=== PATIENT | male | born 1945 | race Caucasian/White ===

== ENCOUNTER → 2020-04-06 09:15 | Outpatient (BNVA) | payer MEDICARE, MEDICAID, SELFPAY | PROVIDERS: PCP Student in an Organized Health Care Education/Training Program; Referring Provider Student in an Organized Health Care Education/Training Program; Visit Provider Psychiatry & Neurology Neurology | DX: G47.31 Primary central sleep apnea (principal) | CPT/HCPCS: 99214 ==

== ENCOUNTER 2020-04-12 09:25 | Emergency (ER) | payer OTHER, MEDICARE, MEDICAID, SELFPAY ==
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
[2020-04-12 09:37] VITALS: BP 161/74; PULSE 81; RESP 14; TEMP 36.8; O2SAT 98; BMI 35.4
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
--- NOTE | 2020-04-12 09:55 | PC.NURSE ---
PT REMOVED C-COLLAR ON ARRIVAL TO ED ROOM/BED. AWARE.
--- NOTE | 2020-04-12 10:30 | PC.NURSE ---
PT AMB (I) GAIT STEADY TO BR.
--- NOTE | 2020-04-12 10:52 | PC.NURSE ---
PT IS NOT IN THE BATHROOM NOR IS HE AT BED #13. AWARE OF PT'S POSSIBLE ELOPEMENT.
--- NOTE | 2020-04-12 11:04 | PC.NURSE ---
PT HAS ELOPED.
== END 2020-04-12 11:07 | disposition left against medical advice (07) ==
PROVIDERS: Emergency Provider Emergency Medicine; PCP Student in an Organized Health Care Education/Training Program
DX: R07.89 Other chest pain (principal); S60.221A Contusion of right hand, initial encounter; V47.5XXA Car driver injured in collision with fixed or stationary object in traffic accident, initial encounter; R93.89 Abnormal findings on diagnostic imaging of other specified body structures; E04.1 Nontoxic single thyroid nodule; I11.0 Hypertensive heart disease with heart failure; I50.9 Heart failure, unspecified; E11.9 Type 2 diabetes mellitus without complications; Y93.89 Activity, other specified; Y92.414 Local residential or business street as the place of occurrence of the external cause; Y99.9 Unspecified external cause status; Z79.82 Long term (current) use of aspirin; Z79.84 Long term (current) use of oral hypoglycemic drugs; Z79.899 Other long term (current) drug therapy
CPT/HCPCS: 71250; 72125; 73130; 99284

== ENCOUNTER → 2020-07-06 08:55 | Outpatient (BNVA) | payer MEDICARE, MEDICAID, SELFPAY | PROVIDERS: PCP Student in an Organized Health Care Education/Training Program; Visit Provider Nurse Practitioner Gerontology | DX: E11.65 Type 2 diabetes mellitus with hyperglycemia (principal); E11.21 Type 2 diabetes mellitus with diabetic nephropathy; E11.42 Type 2 diabetes mellitus with diabetic polyneuropathy; I10 Essential (primary) hypertension; E78.5 Hyperlipidemia, unspecified; Z79.4 Long term (current) use of insulin | CPT/HCPCS: 82947; 99212 ==

== ENCOUNTER → 2020-08-25 11:20 | Outpatient (BNVA) | payer MEDICARE, MEDICAID, SELFPAY | PROVIDERS: PCP Student in an Organized Health Care Education/Training Program; Visit Provider Nurse Practitioner Gerontology ==

== ENCOUNTER → 2020-09-14 12:47 | Outpatient (BNVA) | payer MEDICARE, MEDICAID, SELFPAY | PROVIDERS: PCP Student in an Organized Health Care Education/Training Program; Visit Provider Nurse Practitioner Gerontology | DX: E11.65 Type 2 diabetes mellitus with hyperglycemia (principal); E11.21 Type 2 diabetes mellitus with diabetic nephropathy; E11.42 Type 2 diabetes mellitus with diabetic polyneuropathy; E78.5 Hyperlipidemia, unspecified; I10 Essential (primary) hypertension; Z79.4 Long term (current) use of insulin; Z71.3 Dietary counseling and surveillance | CPT/HCPCS: 82947; 99212 ==

== ENCOUNTER → 2020-10-27 13:58 | Outpatient (BNVA) | payer MEDICARE, MEDICAID, SELFPAY | PROVIDERS: PCP Student in an Organized Health Care Education/Training Program; Visit Provider Nurse Practitioner Gerontology | DX: E11.65 Type 2 diabetes mellitus with hyperglycemia (principal); E11.21 Type 2 diabetes mellitus with diabetic nephropathy; E11.42 Type 2 diabetes mellitus with diabetic polyneuropathy; Z79.4 Long term (current) use of insulin; I10 Essential (primary) hypertension; E78.5 Hyperlipidemia, unspecified | CPT/HCPCS: 82947; 99212 ==

== ENCOUNTER → 2020-12-06 12:49 | Outpatient (BNVA) | payer MEDICARE, MEDICAID, SELFPAY | PROVIDERS: PCP Student in an Organized Health Care Education/Training Program; Visit Provider Nurse Practitioner Gerontology | DX: E11.65 Type 2 diabetes mellitus with hyperglycemia (principal); E11.21 Type 2 diabetes mellitus with diabetic nephropathy; E11.42 Type 2 diabetes mellitus with diabetic polyneuropathy; I10 Essential (primary) hypertension; E78.5 Hyperlipidemia, unspecified; E66.09 Other obesity due to excess calories; Z79.4 Long term (current) use of insulin; Z68.34 Body mass index [BMI] 34.0-34.9, adult | CPT/HCPCS: 82947; 99212 ==

== ENCOUNTER 2021-01-11 15:22 | Outpatient (REF) | payer MEDICARE, MEDICAID, SELFPAY ==
[2021-01-11 16:15] LABS: Alanine Aminotransferase 21 U/L (0-40); Albumin Level 3.9 g/dL (3.5-5.0); Alkaline Phosphatase 85 U/L (39-117); Anion Gap 13 (12-20); Aspartate Amino Transferase 19 U/L (5-37); Bilirubin Total 0.4 mg/dL (0.0-1.0); Blood Urea Nitrogen 24 mg/dL (9-16); Calcium 9.5 mg/dL (8.4-10.2); Carbon Dioxide 28 mmol/L (22-29); Chloride 104 mmol/L (96-108); Cholesterol 191 mg/dL; Estimated Glomerular Filt Rate 52; Glucose Fasting 255 mg/dL (60-99); HDL Cholesterol 34 mg/dL; LDL Cholesterol Calculated 104 mg/dl; Potassium 4.4 mmol/L (3.3-5.1); Sodium 141 mmol/L (135-145); Total Protein 7.5 g/dL (6.5-8.0); Triglycerides 269 mg/dL
[2021-01-11 16:42] LABS: Vitamin B12 625 pg/mL (200-900)
[2021-01-11 17:04] LABS: Creatinine Urine 17.57 mg/dL; Microalbumin Urine < 5.0 mg/L
== END 2021-01-11 15:23 | disposition home or self-care (01) ==
LOC: HO.LAB 15:22
PROVIDERS: PCP Student in an Organized Health Care Education/Training Program; Visit Provider Nurse Practitioner Gerontology
DX: E11.65 Type 2 diabetes mellitus with hyperglycemia (principal); Z79.4 Long term (current) use of insulin
CPT/HCPCS: 36415; 80053; 80061; 82043; 82607

== ENCOUNTER → 2021-01-12 11:33 | Outpatient (BNVA) | payer MEDICARE, MEDICAID, SELFPAY | PROVIDERS: PCP Student in an Organized Health Care Education/Training Program; Visit Provider Nurse Practitioner Gerontology | DX: E11.65 Type 2 diabetes mellitus with hyperglycemia (principal); E11.21 Type 2 diabetes mellitus with diabetic nephropathy; E11.42 Type 2 diabetes mellitus with diabetic polyneuropathy; E78.5 Hyperlipidemia, unspecified; E66.09 Other obesity due to excess calories; I10 Essential (primary) hypertension; Z79.4 Long term (current) use of insulin; Z68.34 Body mass index [BMI] 34.0-34.9, adult | CPT/HCPCS: 82947; Q3014 ==

== ENCOUNTER 2021-01-12 14:28 | Outpatient (REF) | payer MEDICARE, MEDICAID, SELFPAY ==
--- NOTE | 2021-01-13 13:17 | MHC.AU.ANO ---
Adult Audiological Evaluation Date of Visit: 01/12/21 Petrophysicist Used: Declined by Patient Reason for Appointment: Audiologic evaluation due to question of hearing difficulties. Pb's room mate reports he frequently asks for speech to be repeated. 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 History: History: No Medical History: Medical History: Diabetes,Heart Problems, High Blood Pressure, Tobacco Use Medication List: Atorvastatin Calcium, Jardiance, Isosorbide Mononitrate, Lasix, Docusate Sodium, Albuterol Sulfate, Nitrostat, Senna Lax, Ventolin HFA, Aspirin, Loratadine, Metoprolol, Amlodipine, Metformin, Omeprazole, Lyrica, Flovent, Eliquis, Clotrimazole, Zoloft, Ferrous Sulfate Otoscopy: Right Ear: Unremarkable Left Ear: Unremarkable Tympanometry: Tympanometry performed due to: To assess integrity of the middle ear system Right Ear: Could Not Obtain Seal Left Ear: Could Not Obtain Seal Otoacoustic Emissions Not performed at today's visit. Equipment not available Hearing Evaluation: Transducer(s) Used: Insert Earphones Bone Conduction Method: Conventional Audiometry Stimuli Used: Pure Tones Right Ear: Description of Hearing: Normal to borderline normal hearing thresholds 250-2000 Hz, dropping to a moderate sensorineural hearing loss at 3000 Hz, rising to borderline normal at 8000 Hz Left Ear: Description of Hearing: Normal to borderline normal hearing thresholds 250-2000 Hz, dropping to a moderate sensorineural hearing loss at 3000 Hz, rising to mild loss at 5524-7359 Hz Speech Recognition Threshold (SRT): Method Used: Monitored Live Voice Stimuli Used: Spondee Words Right Ear: 20 dB HL Left Ear: 20 dB HL Word Discrimination: Method: Monitored Live Voice Word Lists Used: Lista Bisil?bica (Swedish) Right Ear: 100% at 60 dB HL Left Ear: 100% at 60 dB HL Interpretation of Results: The mild to moderate high frequency sensorineural hearing loss may cause Pb to miss important soft consonant sounds which help him differentiate similar sounding words. Also, if Pb is not paying attention and a person starts to talk, he will likely miss a portion of the speech which causes him to ask for repetition. Recommendations: Patient does not feel they are ready for amplification at this time. Discussed communication strategies to use to improve speech understanding as needed. Audiological re-evaluation in one year. Will send a reminder card. Diagnosis: Primary Diagnosis: H90.3 Bilateral Sensorineural Hearing Loss Services Performed: Comprehensive Audiological Evaluation (CPT 99519) Tympanometry (CPT 44360) Signature: Provider: Inocencio Snider, CCC-A
== END 2021-01-12 14:29 | disposition home or self-care (01) ==
LOC: HO.SH 14:28
PROVIDERS: Visit Provider General Practice
DX: H90.3 Sensorineural hearing loss, bilateral (principal)
CPT/HCPCS: 92557; 92567

== ENCOUNTER 2021-06-23 20:41 | Emergency (ER) | payer MEDICARE, MEDICAID, SELFPAY ==
--- NOTE | ~2021-06-23 | CT_ITS ---
EXAMINATION: CT HEAD WITHOUT CONTRAST CLINICAL INFORMATION: Confusion COMPARISON: 11/29/2019 TECHNIQUE: Contiguous axial imaging was performed from the skull base to vertex without intravenous contrast. This CT examination was performed using dose optimization techniques as appropriate, variously including the following: * Automated exposure control * Adjustment of mA and/or kV according to patient size (this includes techniques or standardized protocols for targeted exams where dose is matched to indication/reason for exam; i.e. extremities or head) Use of iterative reconstruction technique DLP: 719 mGy-cm. FINDINGS: There is no evidence of acute intracranial hemorrhage or territorial infarction. No abnormal mass effect or midline shift is seen. Meza to white matter differentiation is well preserved. No extra-axial fluid collections are identified. No hydrocephalus. Proportional prominence of the ventricles and sulcal spaces is consistent with mild volume loss. Patchy periventricular and deep white matter hypoattenuation is consistent with mild small vessel ischemic changes. The osseous structures and soft tissues are normal. The mastoid air cells and visualized portions of the paranasal sinuses are well aerated. CT/CT head/brain wo con IMPRESSION: No acute intracranial pathology. Mild volume loss with small vessel ischemic change.
--- NOTE | ~2021-06-23 | XR_ITS ---
EXAMINATION: XR CHEST CLINICAL INFORMATION: Cough COMPARISON: 09/13/2019 TECHNIQUE: Frontal view of the chest was obtained. FINDINGS: Median sternotomy wires appear intact. Cardiac leads overlie the chest. The lungs are well expanded. There is no focal consolidation, edema, or effusion. No pneumothorax. The cardiomediastinal silhouette is within normal limits. No acute osseous abnormality. XR/XR chest 1V IMPRESSION: No acute pulmonary finding.
--- NOTE | ~2021-06-23 | XR_ITS ---
EXAMINATION: XR KNEE, RIGHT CLINICAL INFORMATION: Fall with knee pain COMPARISON: Right knee 05/24/2016 TECHNIQUE: Four views of the right knee. FINDINGS: Since 2016, there has been some progression of degenerative changes with narrowing of the medial compartment. The lateral compartment is well maintained as is the patellofemoral compartment. No joint effusion is seen. No fracture is present. XR/XR knee RT 4V IMPRESSION: Mild progressive degenerative changes with narrowing of the medial compartment.
[2021-06-23 20:46] VITALS: BP 130/67; PULSE 84; RESP 16; TEMP 36.8; O2SAT 98; BMI 32.5
[2021-06-23 20:51] LABS: Glucose, Whole Blood 276 mg/dL (60-115)
[2021-06-23 20:57] VITALS: PULSE 82; RESP 18; O2SAT 98
--- NOTE | 2021-06-23 21:10 | ECG_ITS ---
Test Reason : WEAKNESS Blood Pressure : / mmHG Vent. Rate : 076 BPM Atrial Rate : 076 BPM P-R Int : 170 ms QRS Dur : 092 ms QT Int : 430 ms P-R-T Axes : 013 -05 048 degrees QTc Int : 483 ms Sinus rhythm with frequent Premature ventricular complexes Prolonged QT Abnormal ECG When compared to the previous EKG of 13 sep 2019, PVCs present. Referred By: Aster Butts Electronically Signed By:JOSE BENNETT
--- NOTE | 2021-06-23 21:41 | ED.GENADULT ---
HPI - General Adult General Chief complaint: Weakness Stated complaint: AMS Time Seen by Provider: 06/23/21 21:09 Source: patient Mode of arrival: EMS History of Present Illness HPI narrative: 76-year-old male with history hypertension diabetes who is brought in via EMS from home. As per EMS family reports a decline in mental status/confusion over the last 2 months but has noted that is been more significant over the past 2 days. On questioning the patient he is alert and able to identify his location, is aware that it is almost [place] but does not recall the president. He denies any shortness of breath or chest pain/palpitations, denies any abdominal pain/nausea/vomiting/diarrhea and states that he ?fell recently? and points to a small area on his mid chest as well as his right knee. Related Data Home Medications Medication Instructions Recorded Confirmed amlodipine 10 mg tablet 10 mg PO DAILY 04/03/20 01/12/21 aspirin 81 mg tablet,delayed 81 mg PO BEDTIME 04/03/20 01/12/21 release ferrous sulfate 325 mg (65 mg 325 mg PO Q OTHER DAY 04/03/20 01/12/21 iron) tablet fluticasone propionate 250 1 inh INHALATION BID 04/03/20 01/12/21 mcg/actuation blister powder for inhalation furosemide 40 mg tablet 40 mg PO BID 04/03/20 01/12/21 isosorbide mononitrate 30 mg 30 mg PO BEDTIME 04/03/20 01/12/21 tablet,extended release 24 hr loratadine 10 mg tablet 10 mg PO DAILY 04/03/20 01/12/21 metoprolol tartrate 25 mg tablet 25 mg PO 04/03/20 01/12/21 nitroglycerin 0.4 mg sublingual 0.4 mg SUBLINGUAL 04/03/20 01/12/21 tablet omeprazole 20 mg capsule,delayed 20 mg PO QAM 04/03/20 01/12/21 release sertraline 25 mg tablet 25 mg PO QAM 04/03/20 01/12/21 albuterol sulfate mg INHALATION Q4-6H 06/08/20 01/12/21 albuterol sulfate 90 mcg/actuation 2 puff PO QID 06/08/20 01/12/21 aerosol inhaler blood sugar diagnostic #10 ea 12/08/20 07/14/21 lancets 33 gauge #100 ea 06/08/20 01/12/21 metformin 1,000 mg tablet 1,000 mg PO BID tab 06/08/20 01/12/21 pen needle, diabetic 31 gauge x #50 ea 06/08/20 01/12/21 3/16 pregabalin 75 mg capsule 75 mg PO BID cap 06/08/20 01/12/21 apixaban 5 mg tablet 5 mg PO BID 07/06/20 01/12/21 Previous Rx's Medication Instructions Recorded cyclobenzaprine 10 mg tablet 10 mg PO TID PRN #14 tab 04/12/20 lidocaine 5 % topical patch 1 patch TOPICAL DAILY PRN #15 ea 04/12/20 (Lidoderm) insulin degludec 200 unit/mL (3 70 unit (0.35 mL) SUBCUT DAILY 30 01/12/21 mL) subcutaneous pen Days #18 ml insulin lispro-aabc 100 unit/mL 16 - 20 unit (0.16 - 0.2 mL) 01/12/21 subcutaneous pen (Lyumjev KwikPen SUBCUT TID 30 Days #30 ml U-100 Insulin) rosuvastatin 40 mg tablet 40 mg PO DAILY #30 tab 01/12/21 empagliflozin 25 mg tablet 25 mg PO QAM #30 tab 05/10/21 (Jardiance) Allergies Allergy/AdvReac Type Severity Reaction Status Date / Time No Known Allergies Allergy Mild NOT Verified 01/12/21 12:14 APPLICABLE Review of Systems Review of Systems: Pertinent positives and negatives as stated in HPI 10 point review of systems is otherwise negative. [facility] Past Medical History Source: nursing notes reviewed Medical History Anemia Aortic stenosis CHF (congestive heart failure) Depression Diabetes Essential hypertension Gastritis HTN (hypertension) Hyperlipidemia Hyperlipidemia LDL goal <70 Obesity due to excess calories Substance abuse Type 2 diabetes mellitus with diabetic polyneuropathy Type 2 diabetes mellitus with hyperglycemia, with long-term current use of insulin Type 2 diabetes with nephropathy Surgical History Hx of aortic valve replacement Hx of cholecystectomy Hx of hernia repair Family History Family History Father No problems noted. Mother CVA (cerebral vascular accident) Diabetes Cancer of stomach Family/Other Diabetes Social History Social History Household Members: Spouse and Other Household Members Other:: Son Housing: Apartment Advance Directives: No Advance Directives Information Provided: Yes Physical Exam Vital Signs: Vital Signs: Last Vital Signs Temp 98.2 F 06/23/21 20:46 Pulse 72 06/24/21 01:42 Resp 16 06/24/21 01:42 BP 133/78 06/24/21 01:42 Pulse Ox 98 06/24/21 01:42 BMI result Body Mass Index 32.5 VITAL SIGNS: Reviewed. GENERAL: Well developed, well nourished, in no acute distress. HEAD: Normocephalic/atraumatic EYES: PERRLA, EOMI OROPHARYNX: no oral lesions noted, posterior pharynx clear, moist mucosa NECK: Supple, no adenopathy LUNGS: Normal breath sounds. No adventitious sounds or accessory muscle use. SpO2<98> CARDIOVASCULAR: Regular rate and rhythm without noted murmurs, no JVD or lower extremity edema. ABDOMEN: Soft, non-tender, non-distended with bowel sounds. MUSCULOSKELETAL: No tenderness, deformities, or effusions noted on gross inspection. EXTREMITIES: No cyanosis, clubbing or edema, bruising around the right knee without obvious effusion or surrounding erythema/induration SKIN: Inspection of the skin reveals no rashes NEUROLOGIC: Alert and oriented x 2. Strength and sensation to light touch were grossly intact x 4. Course Course Course Narrative: 76-year-old male with history and clinical presentation inconsistent with infection, anemia but will obtain CT head as well as urinalysis and if no underlying medical findings will discharge home. On review of all investigations although there is a noted increase in BNP patient was provided with Lasix and otherwise there are no acute findings that would prompt admission. This case was discussed with the inpatient hospitalist and the decision to send patient home was agreed on. All results were discussed with patient at bedside with diplomatic interpreter/translator to include his discharged to home. Medical Decision Making Lab Data Result diagrams: 06/23/21 21:34 06/23/21 21:34 Labs: Lab Results 06/23/21 06/23/21 06/23/21 Range/Units 20:48 21:34 21:34 WBC (4.8-10.8) X10*3/uL RBC (4.60-5.80) X10*6/uL Hgb (14.0-18.0) g/dl Hct (42.0-52.0) % MCV (80.0-98.0) fL MCH (27.0-33.0) pg MCHC (31.0-36.0) g/dl RDW (11.0-16.0) % Plt Count (160-400) X10*3/uL MPV (9.4-12.4) fL Immature Gran % (Auto) (0.0-0.4) % Neut % (Auto) (45-73) % Lymph % (Auto) (20-40) % [place] % (Auto) (2-11) % Eos % (Auto) (0-4) % Baso % (Auto) (0-2) % Lymph # (Auto) (1.2-4.9) X10*3/uL [place] # (Auto) (0.1-1.2) X10*3/uL Eos # (Auto) (0.0-0.4) X10*3/uL Baso # (Auto) (0.0-0.2) X10*3/uL Abs Immat Gran (auto) (0.00-0.03) X10*3/uL Absolute Neuts (auto) (2.0-8.3) x10*3/uL Absolute Nucleated RBC (0.0-0.012) X10*3/uL Nucleated RBC % (auto) (0.0-0.2) /100WBC Sodium 138 (135-145) mmol/L Potassium 3.8 (3.3-5.1) mmol/L Chloride 104 (96-108) mmol/L Carbon Dioxide 24 (22-29) mmol/L Anion Gap 14 (12-20) BUN 26 H (9-16) mg/dL Creatinine 1.44 H (0.5-1.4) mg/dL Estim Creat Clear Calc 44.5 Estimated GFR 48 POC Glucose 276 H (60-115) mg/dL Random Glucose 279 H (60-115) mg/dL Calcium 9.5 (8.4-10.2) mg/dL Total Bilirubin 0.4 (0.0-1.0) mg/dL AST 27 D (5-37) U/L ALT 39 (0-40) U/L Alkaline Phosphatase 81 (39-117) U/L Troponin I High Sens (<3.5-35.0) ng/L B-Natriuretic Peptide (<100) pg/mL Total Protein 7.7 (6.5-8.0) g/dL Albumin 4.0 (3.5-5.0) g/dL Urine Color Urine Appearance Urine pH (5.0-8.0) Ur Specific [place] (1.005-1.025) Urine Protein (NEG-TRACE) MG/DL Urine Glucose (UA) (NEG) MG/DL Urine Ketones (NEG) MG/DL Urine Blood (NEG) Urine Nitrite (NEG) Ur Leukocyte Esterase (NEG) Urine RBC (0) /HPF Urine WBC (0-4) /HPF Ur Squamous Epith Cells /LPF Urine Bacteria /LPF Acetone, Qual Negative (Negative) COVID-19 ([facility]ETH) Negative (Negative) COVID-19 Clin Com See Note 06/23/21 06/23/21 06/23/21 Range/Units 21:34 21:34 23:39 WBC 7.3 (4.8-10.8) X10*3/uL RBC 4.94 (4.60-5.80) X10*6/uL Hgb 14.1 (14.0-18.0) g/dl Hct 43.4 (42.0-52.0) % MCV 87.9 (80.0-98.0) fL MCH 28.5 (27.0-33.0) pg MCHC 32.5 (31.0-36.0) g/dl RDW 14.0 (11.0-16.0) % Plt Count 173 (160-400) X10*3/uL MPV 10.6 (9.4-12.4) fL Immature Gran % (Auto) 0.1 (0.0-0.4) % Neut % (Auto) 70.6 (45-73) % Lymph % (Auto) 21.5 (20-40) % [place] % (Auto) 7.3 (2-11) % Eos % (Auto) 0.1 (0-4) % Baso % (Auto) 0.4 (0-2) % Lymph # (Auto) 1.6 (1.2-4.9) X10*3/uL [place] # (Auto) 0.5 (0.1-1.2) X10*3/uL Eos # (Auto) 0.0 (0.0-0.4) X10*3/uL Baso # (Auto) 0.0 (0.0-0.2) X10*3/uL Abs Immat Gran (auto) 0.01 (0.00-0.03) X10*3/uL Absolute Neuts (auto) 5.1 (2.0-8.3) x10*3/uL Absolute Nucleated RBC 0.000 (0.0-0.012) X10*3/uL Nucleated RBC % (auto) 0.0 (0.0-0.2) /100WBC Sodium (135-145) mmol/L Potassium (3.3-5.1) mmol/L Chloride (96-108) mmol/L Carbon Dioxide (22-29) mmol/L Anion Gap (12-20) BUN (9-16) mg/dL Creatinine (0.5-1.4) mg/dL Estim Creat Clear Calc Estimated GFR POC Glucose (60-115) mg/dL Random Glucose (60-115) mg/dL Calcium (8.4-10.2) mg/dL Total Bilirubin (0.0-1.0) mg/dL AST (5-37) U/L ALT (0-40) U/L Alkaline Phosphatase (39-117) U/L Troponin I High Sens 9.6 (<3.5-35.0) ng/L B-Natriuretic Peptide 351 H (<100) pg/mL Total Protein (6.5-8.0) g/dL Albumin (3.5-5.0) g/dL Urine Color YELLOW Urine Appearance CLEAR Urine pH 7.5 (5.0-8.0) Ur Specific [place] 1.010 (1.005-1.025) Urine Protein NEG (NEG-TRACE) MG/DL Urine Glucose (UA) >=1000 H (NEG) MG/DL Urine Ketones NEG (NEG) MG/DL Urine Blood NEG (NEG) Urine Nitrite NEG (NEG) Ur Leukocyte Esterase NEG (NEG) Urine RBC 1-4 (0) /HPF Urine WBC 1-4 (0-4) /HPF Ur Squamous Epith Cells 1+ /LPF Urine Bacteria 1+ /LPF Acetone, Qual (Negative) COVID-19 (ELIZABETH) (Negative) COVID-19 Clin Com ECG Data Attestation: I personally reviewed and interpreted this ECG as follows: Prior ECG tracings: not available for review Interpretation: Sinus rhythm, HR -76, no STEMI, FL/QRS within normal limits. Discharge Plan Discharge Clinical Impression: CHF (congestive heart failure) Patient Disposition: Home, Self-Care Instructions: Heart Failure (ED), Heart Healthy Diet (ED) Additional Instructions: 1. Reanude todos los medicamentos caseros seg?n lo prescrito. 2. Recomiende hacer un seguimiento con porter proveedor de atenci?n primaria el lunes para bri reevaluaci?n. Regrese a la cristiano de emergencias si los s?ntomas empeoran. Prescriptions: No Action Jardiance 25 mg tablet 25 mg PO QAM Qty: 30 RF: 4 cyclobenzaprine 10 mg tablet 10 mg PO TID PRN (Reason: muscle spasm) Qty: 14 RF: 0 lidocaine [Lidoderm] 5 % adhesive patch,medicated 1 patch topical DAILY PRN (Reason: pain) Qty: 15 RF: 0 (DME) FreeStyle Lite Strips Strip See Rx Instructions ea .ROUTE QID Qty: 10 RF: 0 (DME) pen needle, diabetic 31 gauge x 3/16 needle See Rx Instructions ea .ROUTE QID Qty: 50 RF: 0 (DME) lancets 33 gauge misc See Rx Instructions ea .ROUTE QID Qty: 100 RF: 0 albuterol sulfate 90 mcg/actuation HFA aerosol inhaler 2 puff PO QID RF: 0 albuterol sulfate 2.5 mg /3 mL (0.083 %) solution for nebulization inhalation Q4-6H RF: 0 metoprolol tartrate 25 mg tablet 25 mg PO RF: 0 Flovent Diskus 250 mcg/actuation blister with device 1 inh inhalation BID RF: 0 omeprazole 20 mg capsule,delayed release(DR/EC) 20 mg PO QAM RF: 0 sertraline 25 mg tablet 25 mg PO QAM RF: 0 ferrous sulfate 325 mg (65 mg iron) tablet 325 mg PO Q OTHER DAY RF: 0 amlodipine 10 mg tablet 10 mg PO DAILY RF: 0 aspirin 81 mg tablet,delayed release (DR/EC) 81 mg PO BEDTIME RF: 0 isosorbide mononitrate 30 mg tablet extended release 24 hr 30 mg PO BEDTIME RF: 0 furosemide 40 mg tablet 40 mg PO BID RF: 0 loratadine 10 mg tablet 10 mg PO DAILY RF: 0 nitroglycerin 0.4 mg tablet, sublingual 0.4 mg sublingual RF: 0 metformin 1,000 mg tablet 1,000 mg PO BID RF: 0 pregabalin 75 mg capsule 75 mg PO BID RF: 0 Eliquis 5 mg tablet 5 mg PO BID RF: 0 Lyumjev KwikPen U-100 Insulin 100 unit/mL insulin pen 16 - 20 unit subcut TID 30 Days Qty: 30 RF: 2 insulin degludec 200 unit/mL (3 mL) insulin pen 70 unit subcut DAILY 30 Days Qty: 18 RF: 2 rosuvastatin 40 mg tablet 40 mg PO DAILY Qty: 30 RF: 6 Referrals: Agnes Prieto MD [Primary Care Provider] - 2 days
[2021-06-23 21:46] LABS: MANUAL DIFF FLAG NO
[2021-06-23 21:47] LABS: Basophils Percent Auto 0.4 % (0-2); Eosinophils Percent Auto 0.1 % (0-4); Hematocrit 43.4 % (42.0-52.0); Hemoglobin 14.1 g/dl (14.0-18.0); Imm Gran Abs Auto 0.01 X10*3/uL (0.00-0.03); Imm Gran Pct Auto 0.1 % (0.0-0.4); Lymphocytes Absolute Auto 1.6 X10*3/uL (1.2-4.9); Lymphocytes Percent Auto 21.5 % (20-40); Mean Corpuscular HGB Conc 32.5 g/dl (31.0-36.0); Mean Corpuscular Hemoglobin 28.5 pg (27.0-33.0); Mean Corpuscular Volume 87.9 fL (80.0-98.0); Mean Platelet Volume 10.6 fL (9.4-12.4); Monocytes Absolute Auto 0.5 X10*3/uL (0.1-1.2); Monocytes Percent Auto 7.3 % (2-11); Neutrophils Absolute Auto 5.1 x10*3/uL (2.0-8.3); Neutrophils Percent Auto 70.6 % (45-73); Platelet Count 173 X10*3/uL (160-400); Red Blood Count 4.94 X10*6/uL (4.60-5.80); White Blood Count 7.3 X10*3/uL (4.8-10.8)
[2021-06-23 22:01] LABS: COVID-19 Test Negative (Negative); IDNOW Serial# 9DD0AD1C
[2021-06-23 22:04] LABS: Alanine Aminotransferase 39 U/L (0-40); Alkaline Phosphatase 81 U/L (39-117); Anion Gap 14 (12-20); Aspartate Amino Transferase 27 U/L (5-37); Bilirubin Total 0.4 mg/dL (0.0-1.0); Blood Urea Nitrogen 26 mg/dL (9-16); Calcium 9.5 mg/dL (8.4-10.2); Carbon Dioxide 24 mmol/L (22-29); Chloride 104 mmol/L (96-108); Creatinine Clr Calc Pharmacy 44.5; Estimated Glomerular Filt Rate 48; Glucose Random 279 mg/dL (60-115); Potassium 3.8 mmol/L (3.3-5.1); Sodium 138 mmol/L (135-145); Total Protein 7.7 g/dL (6.5-8.0)
[2021-06-23 22:48] LABS: Acetone, serum QL Negative (Negative)
[2021-06-23 23:32] VITALS: BP 119/64; PULSE 69; RESP 16; O2SAT 98
[2021-06-23 23:46] LABS: Appearance Urine CLEAR; Color Urine YELLOW; Glucose Urine UA >=1000 MG/DL (NEG); Leukocyte Esterase Urine NEG (NEG); Nitrite Urine NEG (NEG); PH 7.5 (5.0-8.0); Urine Blood NEG (NEG); Urine Ketones NEG (NEG); Urine Protein NEG (NEG-TRACE)
[2021-06-23 23:56] LABS: Bacteria Urine 1+ /LPF; Squamous Epithelial Cell Urine 1+ /LPF
[2021-06-24 00:05] LABS: B Type Natriuretic Peptide 351 pg/mL (<100)
[2021-06-24 01:16] LABS: Troponin-I High Sensitivity 9.6 ng/L (<3.5-35.0)
[2021-06-24 01:42] VITALS: BP 133/78; PULSE 72; RESP 16; O2SAT 98
[2021-06-24] MEDS: Furosemide 100 MG/10 ML VIAL 60 MG IVPUSH (01:53)
[2021-06-24] MEDS: Potassium Chloride ER 20 MEQ TAB.ER.PRT 40 MEQ PO (02:56)
[2021-06-24 05:56] VITALS: BP 136/79; PULSE 67; RESP 16; TEMP 36.5; O2SAT 97
== END 2021-06-24 06:20 | disposition home or self-care (01) ==
PROVIDERS: Emergency Provider Student in an Organized Health Care Education/Training Program; PCP Student in an Organized Health Care Education/Training Program
DX: I11.0 Hypertensive heart disease with heart failure (principal); I50.9 Heart failure, unspecified; D64.9 Anemia, unspecified; E11.9 Type 2 diabetes mellitus without complications; Z20.822 Contact with and (suspected) exposure to COVID-19
CPT/HCPCS: 36415; 70450; 71045; 73564; 80053; 81001; 82009; 82947; 83880; 84484; 85025; 87635; 93005; 96374; 99284; J1940

== ENCOUNTER 2021-07-22 04:16 | Emergency (ER) | payer MEDICARE, MEDICAID, SELFPAY ==
--- NOTE | ~2021-07-22 | XR_ITS ---
EXAMINATION: XR CHEST CLINICAL INFORMATION: Chest pain COMPARISON: 06/23/2021 TECHNIQUE: Frontal view of the chest was obtained. FINDINGS: Median sternotomy wires appear intact. Cardiac leads overlie the chest. Lung volumes are low. Mild bronchovascular crowding. No consolidation. No edema or effusion. No pneumothorax. The cardiomediastinal silhouette is unchanged. XR/XR chest 1V IMPRESSION: No acute pulmonary finding.
--- NOTE | 2021-07-22 04:26 | ECG_ITS ---
Test Reason : CP Blood Pressure : / mmHG Vent. Rate : 086 BPM Atrial Rate : 086 BPM P-R Int : 168 ms QRS Dur : 082 ms QT Int : 428 ms P-R-T Axes : -03 -05 040 degrees QTc Int : 512 ms Normal sinus rhythm Nonspecific ST and T wave abnormality Prolonged QT Abnormal ECG When compared with ECG of 23-JUN-2021 21:24, Premature ventricular complexes are no longer Present Referred By: Generic ED Physician Electronically Signed By:Js Hood
[2021-07-22 04:54] LABS: MANUAL DIFF FLAG NO
[2021-07-22 04:59] VITALS: BP 138/62; PULSE 88; RESP 12; TEMP 36.8; O2SAT 97; BMI 33.6
[2021-07-22 05:00] LABS: Basophils Percent Auto 0.2 % (0-2); Eosinophils Absolute Auto 0.1 X10*3/uL (0.0-0.4); Hematocrit 39.4 % (42.0-52.0); Hemoglobin 13.3 g/dl (14.0-18.0); Imm Gran Abs Auto 0.01 X10*3/uL (0.00-0.03); Imm Gran Pct Auto 0.2 % (0.0-0.4); Lymphocytes Percent Auto 36.6 % (20-40); Mean Corpuscular HGB Conc 33.8 g/dl (31.0-36.0); Mean Corpuscular Hemoglobin 29.8 pg (27.0-33.0); Mean Corpuscular Volume 88.3 fL (80.0-98.0); Mean Platelet Volume 10.1 fL (9.4-12.4); Monocytes Absolute Auto 0.5 X10*3/uL (0.1-1.2); Monocytes Percent Auto 8.2 % (2-11); Neutrophils Absolute Auto 2.9 x10*3/uL (2.0-8.3); Neutrophils Percent Auto 52.8 % (45-73); Platelet Count 160 X10*3/uL (160-400); Red Blood Count 4.46 X10*6/uL (4.60-5.80); Red Cell Distribution Width 14.1 % (11.0-16.0); White Blood Count 5.5 X10*3/uL (4.8-10.8)
[2021-07-22 05:04] VITALS: BP 135/70; PULSE 84; RESP 16; O2SAT 95
--- NOTE | 2021-07-22 05:09 | ED_ITS ---
HPI - Chest Pain General Chief Complaint: Chest Pain Stated Complaint: chest pain Time Seen by Provider: 07/22/21 05:09 Source: patient Mode of arrival: EMS History of Present Illness HPI narrative: Djhnog[age]-old male was brought in by EMS for complaints of chest pain this started approximately to a.m. and has a significant past ca rdiac history. EN route EMS provided aspirin and nitro and otherwise patient denies any associated dizziness, headaches, nausea, diaphoresis and when asked about the character of the chest pain he is unable to further qualify whether it is sharp/burning/squeezing in nature. Otherwise, patient denies any recent fever, chills, diarrhea, nausea, vomiting. Related Data Home Medications Medication Instructions Recorded Confirmed amlodipine 10 mg tablet 10 mg PO DAILY 04/03/20 01/12/21 aspirin 81 mg tablet,delayed 81 mg PO BEDTIME 04/03/20 01/12/21 release ferrous sulfate 325 mg (65 mg 325 mg PO Q OTHER DAY 04/03/20 01/12/21 iron) tablet fluticasone propionate 250 1 inh INHALATION BID 04/03/20 01/12/21 mcg/actuation blister powder for inhalation furosemide 40 mg tablet 40 mg PO BID 04/03/20 01/12/21 isosorbide mononitrate 30 mg 30 mg PO BEDTIME 04/03/20 01/12/21 tablet,extended release 24 hr loratadine 10 mg tablet 10 mg PO DAILY 04/03/20 01/12/21 metoprolol tartrate 25 mg tablet 25 mg PO 04/03/20 01/12/21 nitroglycerin 0.4 mg sublingual 0.4 mg SUBLINGUAL 04/03/20 01/12/21 tablet omeprazole 20 mg capsule,delayed 20 mg PO QAM 04/03/20 01/12/21 release sertraline 25 mg tablet 25 mg PO QAM 04/03/20 01/12/21 albuterol sulfate mg INHALATION Q4-6H 06/08/20 01/12/21 albuterol sulfate 90 mcg/actuation 2 puff PO QID 06/08/20 01/12/21 aerosol inhaler blood sugar diagnostic #10 ea 06/08/20 01/12/21 lancets 33 gauge #100 ea 06/08/20 01/12/21 metformin 1,000 mg tablet 1,000 mg PO BID tab 06/08/20 01/12/21 pen needle, diabetic 31 gauge x #50 ea 06/08/20 01/12/21 3/16 pregabalin 75 mg capsule 75 mg PO BID cap 06/08/20 01/12/21 apixaban 5 mg tablet 5 mg PO BID 07/06/20 01/12/21 Previous Rx's Medication Instructions Recorded cyclobenzaprine 10 mg tablet 10 mg PO TID PRN #14 tab 04/12/20 lidocaine 5 % topical patch 1 patch TOPICAL DAILY PRN #15 ea 04/12/20 (Lidoderm) insulin degludec 200 unit/mL (3 70 unit (0.35 mL) SUBCUT DAILY 30 01/12/21 mL) subcutaneous pen Days #18 ml insulin lispro-aabc 100 unit/mL 16 - 20 unit (0.16 - 0.2 mL) 01/12/21 subcutaneous pen (Lyumjev KwikPen SUBCUT TID 30 Days #30 ml U-100 Insulin) rosuvastatin 40 mg tablet 40 mg PO DAILY #30 tab 01/12/21 empagliflozin 25 mg tablet 25 mg PO QAM #30 tab 05/10/21 (Jardiance) Allergies Allergy/AdvReac Type Severity Reaction Status Date / Time No Known Allergies Allergy Mild NOT Verified 07/22/21 05:01 APPLICABLE Review of Systems Review of Systems: Pertinent positives and negatives as stated in HPI 10 point review of systems is otherwise negative. [facility] Past Medical History Source: nursing notes reviewed Medical History Anemia Aortic stenosis CHF (congestive heart failure) Depression Diabetes Essential hypertension Gastritis HTN (hypertension) Hyperlipidemia Hyperlipidemia LDL goal <70 Obesity due to excess calories Substance abuse Type 2 diabetes mellitus with diabetic polyneuropathy Type 2 diabetes mellitus with hyperglycemia, with long-term current use of insulin Type 2 diabetes with nephropathy Surgical History Hx of aortic valve replacement Hx of cholecystectomy Hx of hernia repair Family History Family History Father No problems noted. Mother CVA (cerebral vascular accident) Diabetes Cancer of stomach Family/Other Diabetes Social History Social History Household Members: Spouse and Other Household Members Other:: Son Housing: Apartment Advance Directives: No Advance Directives Information Provided: No Physical Exam Vital Signs: Vital Signs: Last Vital Signs Temp 97.6 F 07/22/21 07:33 Pulse 73 07/22/21 07:33 Resp 12 07/22/21 07:33 BP 155/78 H 07/22/21 07:33 Pulse Ox 98 07/22/21 07:33 BMI result Body Mass Index 33.6 VITAL SIGNS: Reviewed. GENERAL: Well developed, well nourished, in no acute distress. HEAD: Normocephalic/atraumatic EYES: PERRLA, EOMI OROPHARYNX: no oral lesions noted, posterior pharynx clear LUNGS: Normal breath sounds. No adventitious sounds or accessory muscle use. SpO2<98> CARDIOVASCULAR: Regular rate and rhythm without noted murmurs, no JVD or lower extremity edema. ABDOMEN: Soft, non-tender, non-distended with bowel sounds. MUSCULOSKELETAL: No tenderness, deformities, or effusions noted on gross ins pection. EXTREMITIES: No cyanosis, clubbing or edema. SKIN: Inspection of the skin reveals no rashes NEUROLOGIC: Alert and oriented x 4. Strength and sensation to light touch were grossly intact x 4. Course Course Course Narrative: 76-year-old male with history and clinical presentation suggestive of possible GERD like symptoms but given extensive cardiac history will perform serial troponins and review of initial EKG is negative for STEMI. There is no evidence to suggest a pneumonia or viral symptom. Patient then communicated with the nursing staff that he was experiencing ?heartburn? and was provided with a GI cocktail. On re-evaluation patient reports that the pain has completely resolved and on review of all investigations there are no acute findings. Signed out to ZAKIYA Koch f/u Trop #2. MDM - Chest Pain Lab Data Result diagrams: 07/22/21 04:48 07/22/21 04:48 Labs: Lab Results 07/22/21 07/22/21 07/22/21 Range/Units 04:48 04:48 04:48 WBC 5.5 (4.8-10.8) X10*3/uL RBC 4.46 L (4.60-5.80) X10*6/uL Hgb 13.3 L (14.0-18.0) g/dl Hct 39.4 L (42.0-52.0) % MCV 88.3 (80.0-98.0) fL MCH 29.8 (27.0-33.0) pg MCHC 33.8 (31.0-36.0) g/dl RDW 14.1 (11.0-16.0) % Plt Count 160 (160-400) X10*3/uL MPV 10.1 (9.4-12.4) fL Immature Gran % (Auto) 0.2 (0.0-0.4) % Neut % (Auto) 52.8 (45-73) % Lymph % (Auto) 36.6 (20-40) % [place] % (Auto) 8.2 (2-11) % Eos % (Auto) 2.0 (0-4) % Baso % (Auto) 0.2 (0-2) % Lymph # (Auto) 2.0 (1.2-4.9) X10*3/uL [place] # (Auto) 0.5 (0.1-1.2) X10*3/uL Eos # (Auto) 0.1 (0.0-0.4) X10*3/uL Baso # (Auto) 0.0 (0.0-0.2) X10*3/uL Abs Immat Gran (auto) 0.01 (0.00-0.03) X10*3/uL Absolute Neuts (auto) 2.9 (2.0-8.3) x10*3/uL Absolute Nucleated RBC 0.000 (0.0-0.012) X10*3/uL Nucleated RBC % (auto) 0.0 (0.0-0.2) /100WBC Sodium 136 (135-145) mmol/L Potassium 3.8 (3.3-5.1) mmol/L Chloride 97 (96-108) mmol/L Carbon Dioxide 30 H (22-29) mmol/L Anion Gap 13 (12-20) BUN 15 (9-16) mg/dL Creatinine 1.05 (0.5-1.4) mg/dL Estim Creat Clear Calc 59.9 Estimated GFR > 60 Random Glucose 226 H (60-115) mg/dL Calcium 9.6 (8.4-10.2) mg/dL Troponin I High Sens < 3.5 D (<3.5-35.0) ng/L B-Natriuretic Peptide 61 (<100) pg/mL COVID-19 ([facility]) (Negative) COVID-19 Clin Com 07/22/21 Range/Units 04:48 WBC (4.8-10.8) X10*3/uL RBC (4.60-5.80) X10*6/uL Hgb (14.0-18.0) g/dl Hct (42.0-52.0) % MCV (80.0-98.0) fL MCH (27.0-33.0) pg MCHC (31.0-36.0) g/dl RDW (11.0-16.0) % Plt Count (160-400) X10*3/uL MPV (9.4-12.4) fL Immature Gran % (Auto) (0.0-0.4) % Neut % (Auto) (45-73) % Lymph % (Auto) (20-40) % [place] % (Auto) (2-11) % Eos % (Auto) (0-4) % Baso % (Auto) (0-2) % Lymph # (Auto) (1.2-4.9) X10*3/uL [place] # (Auto) (0.1-1.2) X10*3/uL Eos # (Auto) (0.0-0.4) X10*3/uL Baso # (Auto) (0.0-0.2) X10*3/uL Abs Immat Gran (auto) (0.00-0.03) X10*3/uL Absolute Neuts (auto) (2.0-8.3) x10*3/uL Absolute Nucleated RBC (0.0-0.012) X10*3/uL Nucleated RBC % (auto) (0.0-0.2) /100WBC Sodium (135-145) mmol/L Potassium (3.3-5.1) mmol/L Chloride (96-108) mmol/L Carbon Dioxide (22-29) mmol/L Anion Gap (12-20) BUN (9-16) mg/dL Creatinine (0.5-1.4) mg/dL Estim Creat Clear Calc Estimated GFR Random Glucose (60-115) mg/dL Calcium (8.4-10.2) mg/dL Troponin I High Sens (<3.5-35.0) ng/L B-Natriuretic Peptide (<100) pg/mL COVID-19 ([facility]ETH) Negative (Negative) COVID-19 Clin Com See Note ECG Data ECG #1: Attestation: I personally reviewed and interpreted this ECG as follows: Prior ECG tracings: available for review Interpretation: Normal sinus rhythm, HR-86, no STEMI, PA/QRS within normal limits in QTC is noted to be prolonged. Discharge Plan Discharge Clinical Impression: Atypical chest pain, GERD (gastroesophageal reflux disease) Patient Disposition: Home, Self-Care Instructions: Chest Pain (ED), Diet for Stomach Ulcers and Gastritis (ED), Gastroesophageal Reflux Disease (ED) Additional Instructions: 1. Reanudar todos los medicamentos caseros seg?n lo prescrito. 2. Recomiende ajustar porter dieta para evitar los picantes, grasosos y c?tricos que reducir?n mariana sensaciones de indigesti?n/ardor de est?tino. 3. Jana un seguimiento con porter proveedor de atenci?n primaria en los pr?ximos 1 a 2 d?as para bri reevaluaci?n y un manejo ambulatorio adicional. Regrese a la cristiano de emergencias si los s?ntomas empeoran. Prescriptions: No Action Jardiance 25 mg tablet 25 mg PO QAM Qty: 30 RF: 4 cyclobenzaprine 10 mg tablet 10 mg PO TID PRN (Reason: muscle spasm) Qty: 14 RF: 0 lidocaine [Lidoderm] 5 % adhesive patch,medicated 1 patch topical DAILY PRN (Reason: pain) Qty: 15 RF: 0 (DME) FreeStyle Lite Strips Strip See Rx Instructions ea .ROUTE QID Qty: 10 RF: 0 (DME) pen needle, diabetic 31 gauge x 3/16 needle See Rx Instructions ea .ROUTE QID Qty: 50 RF: 0 (DME) lancets 33 gauge misc See Rx Instructions ea .ROUTE QID Qty: 100 RF: 0 albuterol sulfate 90 mcg/actuation HFA aerosol inhaler 2 puff PO QID RF: 0 albuterol sulfate 2.5 mg /3 mL (0.083 %) solution for nebulization inhalation Q4-6H RF: 0 metoprolol tartrate 25 mg tablet 25 mg PO RF: 0 Flovent Diskus 250 mcg/actuation blister with device 1 inh inhalation BID RF: 0 omeprazole 20 mg capsule,delayed release(DR/EC) 20 mg PO QAM RF: 0 sertraline 25 mg tablet 25 mg PO QAM RF: 0 ferrous sulfate 325 mg (65 mg iron) tablet 325 mg PO Q OTHER DAY RF: 0 amlodipine 10 mg tablet 10 mg PO DAILY RF: 0 aspirin 81 mg tablet,delayed release (DR/EC) 81 mg PO BEDTIME RF: 0 isosorbide mononitrate 30 mg tablet extended release 24 hr 30 mg PO BEDTIME RF: 0 furosemide 40 mg tablet 40 mg PO BID RF: 0 loratadine 10 mg tablet 10 mg PO DAILY RF: 0 nitroglycerin 0.4 mg tablet, sublingual 0.4 mg sublingual RF: 0 metformin 1,000 mg tablet 1,000 mg PO BID RF: 0 pregabalin 75 mg capsule 75 mg PO BID RF: 0 Eliquis 5 mg tablet 5 mg PO BID RF: 0 Lyumjev KwikPen U-100 Insulin 100 unit/mL insulin pen 16 - 20 unit subcut TID 30 Days Qty: 30 RF: 2 insulin degludec 200 unit/mL (3 mL) insulin pen 70 unit subcut DAILY 30 Days Qty: 18 RF: 2 rosuvastatin 40 mg tablet 40 mg PO DAILY Qty: 30 RF: 6 Referrals: Agnes Prieto MD [Primary Care Provider] - 2 days Print Language: Ukrainian
[2021-07-22 05:13] LABS: COVID-19 Test Negative (Negative)
[2021-07-22 05:16] LABS: Anion Gap 13 (12-20); Blood Urea Nitrogen 15 mg/dL (9-16); Calcium 9.6 mg/dL (8.4-10.2); Carbon Dioxide 30 mmol/L (22-29); Chloride 97 mmol/L (96-108); Creatinine Clr Calc Pharmacy 59.9; Estimated Glomerular Filt Rate > 60; Glucose Random 226 mg/dL (60-115); Potassium 3.8 mmol/L (3.3-5.1); Sodium 136 mmol/L (135-145)
[2021-07-22 05:24] LABS: B Type Natriuretic Peptide 61 pg/mL (<100); Troponin-I High Sensitivity < 3.5 ng/L (<3.5-35.0)
[2021-07-22 06:08] VITALS: BP 142/73; PULSE 75; RESP 16; O2SAT 96
[2021-07-22] MEDS: Magnesium Hydrox/Alum Hydrox 30 ML ORAL.SUSP PO (07:32)
[2021-07-22] MEDS: Lidocaine HCl Viscous 2 % 15 ML SOLUTION 10 ML MUCOUS MEM (07:32)
[2021-07-22 07:33] VITALS: BP 155/78; PULSE 73; RESP 12; TEMP 36.4; O2SAT 98
--- NOTE | 2021-07-22 07:36 | PC.NURSE ---
MEDICATED CHARTED, PLAN FOR REPEAT TROP AT 0800. STATES HE HAS A HEADACHE NO CP. BILATERAL LE EDEMA
[2021-07-22 08:05] VITALS: BP 118/68; PULSE 74; RESP 15; TEMP 36.8; O2SAT 99
[2021-07-22 08:50] LABS: Troponin-I High Sensitivity < 3.5 ng/L (<3.5-35.0)
--- NOTE | 2021-07-22 09:11 | PC.NURSE ---
PROVIDED TOAST AND JUICE. CALL PLACED TO FAMILY FOR TRANSPORT HOME
== END 2021-07-22 10:30 | disposition home or self-care (01) ==
PROVIDERS: Emergency Provider Student in an Organized Health Care Education/Training Program; PCP Student in an Organized Health Care Education/Training Program
DX: R07.89 Other chest pain (principal); K21.9 Gastro-esophageal reflux disease without esophagitis; Z20.822 Contact with and (suspected) exposure to COVID-19; I11.0 Hypertensive heart disease with heart failure; I50.9 Heart failure, unspecified; E11.9 Type 2 diabetes mellitus without complications; E78.5 Hyperlipidemia, unspecified; Z79.82 Long term (current) use of aspirin; Z79.01 Long term (current) use of anticoagulants; Z79.899 Other long term (current) drug therapy; Z79.4 Long term (current) use of insulin; Z79.02 Long term (current) use of antithrombotics/antiplatelets; Z95.2 Presence of prosthetic heart valve
CPT/HCPCS: 36415; 71045; 80048; 83880; 84484; 85025; 87635; 93005; 99283; 99284

== ENCOUNTER → 2021-10-05 09:42 | Outpatient (BNVA) | payer MEDICARE, MEDICAID, SELFPAY | PROVIDERS: PCP Student in an Organized Health Care Education/Training Program; Visit Provider Physician Assistant | DX: K62.5 Hemorrhage of anus and rectum (principal); Z53.20 Procedure and treatment not carried out because of patient's decision for unspecified reasons | CPT/HCPCS: 99202 ==

== ENCOUNTER → 2021-10-31 10:48 | Outpatient (BNVA) | payer OTHER, SELFPAY | PROVIDERS: PCP Student in an Organized Health Care Education/Training Program; Visit Provider Nurse Practitioner Gerontology | DX: E11.65 Type 2 diabetes mellitus with hyperglycemia (principal); E11.21 Type 2 diabetes mellitus with diabetic nephropathy; E11.42 Type 2 diabetes mellitus with diabetic polyneuropathy; E78.5 Hyperlipidemia, unspecified; E66.09 Other obesity due to excess calories; I10 Essential (primary) hypertension; Z79.4 Long term (current) use of insulin; Z68.34 Body mass index [BMI] 34.0-34.9, adult | CPT/HCPCS: 82947; 83036; Q3014 ==

== ENCOUNTER → 2021-11-17 10:44 | Outpatient (BNVA) | payer OTHER, SELFPAY | PROVIDERS: PCP Student in an Organized Health Care Education/Training Program; Visit Provider Psychiatry & Neurology Neurology | DX: F09 Unspecified mental disorder due to known physiological condition (principal); G44.229 Chronic tension-type headache, not intractable; G24.3 Spasmodic torticollis; R26.9 Unspecified abnormalities of gait and mobility | CPT/HCPCS: 99202 ==

== ENCOUNTER 2021-12-02 18:52 | Outpatient (REF) | payer OTHER, SELFPAY ==
--- NOTE | ~2021-12-02 | MR_ITS ---
EXAMINATION: MR head/brain wo con CLINICAL INFORMATION: Unspecified abnormalities of gait mobility. Self-reported memory loss for one year. Self-reported right-sided headaches. COMPARISON: CT head 06/23/2021, CT head 11/29/2019 TECHNIQUE: Routine unenhanced MRI of the brain. FINDINGS: Diffusion-weighted images demonstrate no evidence of acute infarcts. Mild diffuse commensurate prominence of ventricles and sulci is noted. A minimal number of scattered subcortical and periventricular white matter patchy T2 hyperintensities are visualized. Susceptibility weighted images reveal no evidence of acute or chronic hemorrhage within the brain parenchyma. Several scattered vague sulcal punctate low signal susceptibility weighted foci are noted and may represent cortical vascular dystrophic calcifications. The craniocervical junction and cerebellar tonsils are normal in configuration. Incidental note is made of convex inward deformity of the superior margin of the pituitary, a frequently encountered normal anatomic variation. No suspicious marrow abnormalities are identified. The orbits and globes are normal in appearance. Mild, physiologic mucosal thickening is noted within scattered ethmoid air cells. No mastoid effusions identified. Normal flow-related signal intensity is visualized in the major intercranial vessels and dural sinuses. MR/MR head/brain wo con IMPRESSION: *No acute intracranial abnormalities. *Mild chronic microangiopathic ischemic changes. *No gross evidence of disproportional hippocampal volume loss. No evidence of normal pressure hydrocephalus.
== END 2021-12-02 18:53 | disposition home or self-care (01) ==
LOC: HO.MRI 18:52
PROVIDERS: Visit Provider Psychiatry & Neurology Neurology
DX: G44.229 Chronic tension-type headache, not intractable (principal); R26.9 Unspecified abnormalities of gait and mobility; F09 Unspecified mental disorder due to known physiological condition
CPT/HCPCS: 70551

== ENCOUNTER 2022-04-18 11:53 | Outpatient (REF) | payer OTHER, SELFPAY ==
[2022-04-18 12:51] LABS: Ammonia 31 umol/L (13-55)
[2022-04-18 13:28] LABS: Amphetamine Screen Urine Not Detected (Not Detect); Barbiturates, Urine Not Detected (Not Detect); Benzodiazepines Screen Urine Not Detected (Not Detect); Cannabinoid Screen Urine Not Detected (Not Detect); Cocaine Screen Urine Not Detected (Not Detect); Fentanyl, urine Not Detected (Not Detect); Opiate Screen Urine Not Detected (Not Detect); Phencyclidine Screen Urine Not Detected (Not Detect)
== END 2022-04-18 11:54 | disposition home or self-care (01) ==
LOC: HO.LAB 11:53
PROVIDERS: PCP Student in an Organized Health Care Education/Training Program; Visit Provider Student in an Organized Health Care Education/Training Program
DX: F44.89 Other dissociative and conversion disorders (principal)
CPT/HCPCS: 80307; 82140

== ENCOUNTER 2023-11-06 13:57 | Outpatient (REF) | payer OTHER, SELFPAY ==
--- NOTE | ~2023-11-06 | US_ITS ---
EXAMINATION: US SOFT TISSUE NECK CLINICAL INFORMATION: Patient indicated mass in the right neck COMPARISON: None available. TECHNIQUE: Ultrasound of the neck soft tissues is performed with high- frequency corley-scale imaging and color Doppler. FINDINGS: THYROID BED: Right lower neck multiple lymph nodes are seen, the largest measuring 7 x 3 x 5 mm in the level 4 region which is very hypoechoic in appearance without a definitive fatty hilum. Very hypoechoic structure seen in the right lower neck (level 4 area) measuring 0.6 x 0.4 x 0.6 cm. US/US soft tiss head and/or neck IMPRESSION: Multiple right lower neck lymph nodes are seen, the largest measuring 7 x 3 x 5 mm in the level 4 region which is very hypoechoic in appearance without a definitive fatty hilum. Very hypoechoic structure seen in the right lower neck (level 4 area) measuring 0.6 x 0.4 x 0.6 cm. Recommend further evaluation with tissue sampling or CT with contrast.
== END 2023-11-06 13:58 | disposition home or self-care (01) ==
LOC: HO.US 13:57
PROVIDERS: PCP Student in an Organized Health Care Education/Training Program; Visit Provider Student in an Organized Health Care Education/Training Program
DX: R22.1 Localized swelling, mass and lump, neck (principal)
CPT/HCPCS: 76536

== ENCOUNTER 2023-11-13 09:20 | Outpatient (REF) | payer OTHER, SELFPAY ==
[2023-11-13 10:38] LABS: Anion Gap 14 (12-20); Blood Urea Nitrogen 22 mg/dL (9-16); Calcium 9.5 mg/dL (8.4-10.2); Carbon Dioxide 26 mmol/L (22-29); Chloride 106 mmol/L (96-108); Estimated Glomerular Filt Rate > 60; Glucose Random 207 mg/dL (60-115); Sodium 142 mmol/L (135-145)
== END 2023-11-13 09:21 | disposition home or self-care (01) ==
LOC: HO.CHCLDS 09:20
PROVIDERS: Visit Provider Student in an Organized Health Care Education/Training Program
DX: I10 Essential (primary) hypertension (principal)
CPT/HCPCS: 36415; 80048

== ENCOUNTER 2023-11-21 09:56 | Outpatient (REF) | payer OTHER, SELFPAY ==
[2023-11-21 12:00] LABS: Folate 13.5 ng/mL (> or = 4.0); Vitamin B12 770 pg/mL (200-900)
== END 2023-11-21 09:57 | disposition home or self-care (01) ==
LOC: HO.LAB 09:56
PROVIDERS: PCP Student in an Organized Health Care Education/Training Program; Visit Provider Psychiatry & Neurology Neurology
DX: F10.27 Alcohol dependence with alcohol-induced persisting dementia (principal)
CPT/HCPCS: 36415; 82607; 82746

== ENCOUNTER 2024-01-30 12:29 | Outpatient (REF) | payer OTHER, SELFPAY ==
--- NOTE | 2024-01-30 12:31 | EEG_ITS ---
This is a 16-channel EEG with an EKG lead. The patient is reported awake during the tracing. Background EEG rhythm is 7 to 8 hertz 5 to 50 microvolt posteriorly lower amplitude fast anteriorly. Photic stimulation does not produce any significant abnormality. Hyperventilation is not performed. Cardiac lead does not reveal any significant abnormality other than PVCs. No sharp wave spikes or paroxysmal tendency noted. IMPRESSION: Mild slowing with no evidence of seizure disorder with frequent PVCs noted on EKG. MD LEATHA Ndiaye/FITZ / [id number]
== END 2024-01-30 12:30 | disposition home or self-care (01) ==
LOC: HO.NEURO 12:29
PROVIDERS: PCP Student in an Organized Health Care Education/Training Program; Visit Provider Psychiatry & Neurology Neurology
DX: G40.909 Epilepsy, unspecified, not intractable, without status epilepticus (principal)
CPT/HCPCS: 95816

== ENCOUNTER 2024-09-15 09:25 | Outpatient (REF) | payer OTHER, SELFPAY ==
[2024-09-15 14:57] LABS: Alanine Aminotransferase 29 U/L (0-40); Albumin Level 3.7 g/dL (3.5-5.0); Alkaline Phosphatase 97 U/L (39-117); Anion Gap 12 (12-20); Aspartate Amino Transferase 28 U/L (5-37); Bilirubin Direct 0.3 mg/dL (0.0-0.5); Bilirubin Total 0.7 mg/dL (0.0-1.0); Blood Urea Nitrogen 28 mg/dL (9-16); Carbon Dioxide 27 mmol/L (22-29); Chloride 104 mmol/L (96-108); Cholesterol 190 mg/dL (<200); Estimated Glomerular Filt Rate > 60; Glucose Random 189 mg/dL (60-115); HDL Cholesterol 37 mg/dL (>40); LDL Cholesterol Calculated 126 mg/dL (<100); Sodium 139 mmol/L (135-145); Total Protein 7.4 g/dL (6.5-8.0); Triglycerides 137 mg/dL (<150)
[2024-09-15 15:12] LABS: TSH reflex Free T4 3.45 uIU/mL (0.32-4.0)
== END 2024-09-15 09:26 | disposition home or self-care (01) ==
LOC: HO.CHCLDS 09:25
PROVIDERS: Visit Provider Student in an Organized Health Care Education/Training Program
DX: E11.65 Type 2 diabetes mellitus with hyperglycemia (principal); Z79.4 Long term (current) use of insulin; E03.9 Hypothyroidism, unspecified; I10 Essential (primary) hypertension
CPT/HCPCS: 36415; 80048; 80061; 80076; 84443

== ENCOUNTER 2025-01-21 11:22 | Outpatient (AMB) | payer OTHER, SELFPAY ==
--- OUTSIDE RECORDS SUMMARY | 2024-12-09 09:30 | XMS_ITS ---
[facility] Address [address] [place] [id number] Care Team Providers Care Academic Assistant Name Role Phone Agnes Prieto Primary Care Provider Adelita Talavera [phone] Encounters Encounter Location Date Provider Diagnosis [facility] [address] [id number] 12/09/2024 Adelita Pace Plan Of Treatment Next Appt Details Provider Name:Adelita fields, 03/27/2025 01:00:00 PM, [address] [place] [address], [phone], Progress Notes * Pb PLUNKETT ADOB: [birth year] (79 yo M)Acc No.[id number]:12/09/2024 Progress Note Patient: Pb BONILLA Provider: Tripp Pace DPM :1945 A ge:79 Y S ex:Male Date:12/09/2024 Address:[address] [place] [id number] Pcp:Agnes Prieto Subjective: * Chief Complaints: * * Medical History: Objective: * Vitals: Assessment: Plan: * Treatment: * Images: * The named appointment provid er may or may not be the originator of this progress note, and it is not deemed complete until electronically signed by the appointment provider. Sign off status: Pending * Provider: Tripp Pace DPM Date: 0 12/09/2024 Generated for Luc Nina/Yamila on: 0 01/21/2025 12:22 PM EDT
--- NOTE | 2025-01-21 12:14 | MHC.OFFVIS ---
Intake Visit Reasons: 3 mnts dementia Allergies No Known Allergies Allergy (Mild, Verified 11/17/21 10:48) NOT APPLICABLE HPI Comments Details: 79 years old man with history of a serious head injury in young age, history of alcohol abuse, with migraine type of headaches and multifactorial dementia. Recently a fell down and injured his left shoulder. Also he was not sleeping appropriately at night and medicines so far were not working well for sleep. 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 Mother CVA (cerebral vascular accident) Diabetes Cancer of stomach Family/Other Diabetes Social History Household Members: Spouse and Other Household Members Other:: Son Housing: Apartment Alcohol intake: former Patient Tobacco Use Status: Former Tobacco user Tobacco use type: Cigar Review of Systems Const Details: Constitutional:?No fever, chills, fatigue, weight loss, or night sweats. HEENT:?No headache, vision changes, hearing loss, nasal congestion, sore throat. Neurological:? Forgetfulness, difficulty sleeping, difficulty walking. Psychiatric:?No anxiety, depression, mood swings, sleep disturbance, or hallucinations. Endocrine:?No heat/cold intolerance, polydipsia, polyuria, or hair/skin changes. Hematologic/Lymphatic:?No easy bruising, bleeding, or lymphadenopathy. Integumentary (Skin):?No rash, lesions, itching, or color changes. ? Physical Exam Neuro Other: Mental Status: Alert and oriented to person, place, and time. Normal attention. Normal spontaneous speech, fluency, and comprehension. Cranial Nerves: CN II: Visual borden full to confrontation, visual acuity intact. CN III, IV, : Pupils equal, round, reactive to light and accommodation. Extraocular movements are normal. CN V: Facial sensation is normal. CN VII: Facial movements symmetrical. CN VIII: Hearing intact to bedside conversation is normal. CN IX, X: Palate elevates symmetrically. CN XI: Shoulder shrug and head turn symmetrical. CN XII: Tongue midline without atrophy or fasciculations. Extrapyramidal: Full facial expressions and blinking. No rigidity. Movements are appropriate with no tremor or abnormality. Speech: Normal; no dysarthria or tremor. Assessment & Plan Assessment & Plan (1) Multifactorial dementia: Comment: EEG at [facility] in December 2023: Slow MRI brain WO at [facility] in 2021: Mod diff atrophy, minimal MVD CT brain WO at [facility] in 2020: Mild diff cortical and cerebellar atrophy. Code(s): F03.90 - Unspecified dementia, unspecified severity, without behavioral disturbance, psychotic disturbance, mood disturbance, and anxiety Category: Medical (2) Migraine: Code(s): G43.909 - Migraine, unspecified, not intractable, without status migrainosus Category: Medical Qualifiers: Migraine type: migraine (< 15 days per month) with aura Status migrainosus presence: without status migrainosus Intractability: not intractable Qualified Code(s): G43.109 - Migraine with aura, not intractable, without status migrainosus (3) Insomnia: Code(s): G47.00 - Insomnia, unspecified Category: Medical Qualifiers: Insomnia type: due to medical condition Qualified Code(s): G47.01 - Insomnia due to medical condition Plan Impression: 1. Multifactorial dementia 2. Multifactorial gait disorder 3. Migraine type headaches 4. Insomnia related to above Recommendations: 1. Sertraline 25 mg in the morning for anxiety 2. Trazodone 50 mg at bedtime for insomnia 3. Quetiapine 25 mg 1 at bedtime for insomnia and mood 4. Topiramate 25 mg 1 at bedtime for headache control Medications: Refilled trazodone 50 mg PO BEDTIME PRN 90 tabs 1RF sleep quetiapine 25 mg PO ONCE 90 tabs 1RF topiramate 25 mg PO DAILY 90 tabs 1RF Coding Level of Care Code Tele Est Pt Level 4 (13329) Diagnoses Multifactorial dementia F03.90 Migraine with aura and without status migrainosus, not intractable G43.109 Migraine type: migraine (< 15 days per month) with aura Status migrainosus presence: without status migrainosus Intractability: not intractable Insomnia due to medical condition G47.01 Insomnia type: due to medical condition
--- OUTSIDE RECORDS SUMMARY | 2025-01-21 12:22 | XMS_ITS | Data Portability ---
Author Organization [employer] [facility], [facility] Address [address] [place] [address] Care Team Providers Care Import Export Coordinator Name Role Phone HIM CCA OTHER [facility] Primary Care Provider [phone] Assessment Encounter Date Assessment Date Assessment LastModified by Organization Details LastModified Time 11/13/2024 11/13/2024 Mr. Vides is a 79 yo M with Diabetes Mellitus Type 2, Deep Vein Thrombosis, Dementia (e.g., Alzheimer's Disease) who is calling today about abdominal pain. Per patient and medic, feeling unwell with generalized abdominal pain. Pt went to the ER last night - LWBS. Increased pain - Weakness. Pain is reported as 10/10. Was prescribed Tramadol x 10 pills when he was discharged on 11/08/24 and reports the pt is now out of the medication. Taking Tylenol and Motrin with no relief. Has had decreased PO intake. No n/v. Denies fevers. Last BM was 36 hours ago. Passing gas. Not thrilled about ER because he went in last night and wasn't seen. Has an outpatient surgery consult on 11/25/24. Plan for pre-op. Tried ibuprofen this morning, not very helpful. Update: -POC BMP reassuring: lactate wnl, electrolytes and Cr reassuring. Will plan for toradol 15mg IM. Patient has close surgery f/u and then advised close f/u: if there's any worsening n/v, fevers, skin changes, not passing stool/gas and worsening abdominal pain that can't be controlled, then to go to the ER. At this time, lower suspicion for incarceration or strangulation of the bowel. Low suspicion for ileus or obstruction given he's passing gas and had a recent BM. I provided real -time medical direction via phone for this encounter, and was available for additional phone based assistance as needed. I have reviewed and agree with the Assessment and Plan as documented by the Relay Telegrapher. We discussed the diagnostic uncertainty of home visits and the risk associated with this. In this case the patient and I felt this to be an acceptable and reasonable amount of risk given the benefit of avoiding an ED visit. The patient given the opportunity to ask questions. Follow up with primary care was recommended, as needed. Advised if develops CP/severe SOB/turning blue/uncontrolle d n/v/d or black/bloody emesis or stool/ AMS/ syncope/ high fever unresponsive to APAP to call 911- verbalized understanding of instruction. [email or web address] Not available 11/13/2024 14:40:06 Plan of Treatment Reminders Order Date Submit Date Provider Last Modified By Organization Details Last Modified Time Details Appointments None recorded. Lab BMP, serum or plasma 2024 025 BART Josias [facility], [address] [place] [address], [phone] 17:24:29 Referral None recorded. Procedures None recorded. Surgeries None recorded. Imaging None recorded. Medication Orders ketorolac 30 mg/mL injection solution [address] [facility], [address] [place] [address], [place], [place], [phone], 14:39:19 Patient TargetsNo targets recorded. Patient InstructionsNo instructions recorded. Reason for Referral None Reported. Results Created Date Observation Date Name Description Value Unit Range Abnormal Flag Note LastModifiedBy Organization Detail LastModifiedTime Result Notes None recorded. Medical Equipment None Reported. Allergies No known drug allergies Medications Name Sig Start Date Stop Date Status Note LastModified by Organization Details LastModified Time medbox status USE DIRECTED active Not Available Not Available No t Available nicotine 14 mg/24 hr daily transdermal patch APPLY ONE PATCH DAILY active Not Available Not Available Not Available cefpodoxime 200 mg tablet TAKE ONE TABLET TWICE DAILY UNTIL FINISHED active Not Available Not Available No t Available melatonin 3 mg tablet TAKE ONE TABLET AT BEDTIME active Not Available Not Available No t Available meloxicam 7.5 mg tablet TAKE ONE OR TWO TABLETS DAILY NEEDED FOR PAIN active Not Available Not Available No t Available metformin 1,000 mg tablet TAKE ONE TABLET IN THE MORNING AND EVENING active Not Available Not Available Not Available losartan 25 mg tablet TAKE ONE TABLET EVERY MORNING active Not Available Not Available No t Available sertraline 25 mg tablet TAKE ONE TABLET BY MOUTH EVERY MORNING active Not Available Not Available No t Available omeprazole 20 mg capsule,odilia yed release TAKE ONE CAPSULE EVERY MORNING active Not Available Not Available No t Available furosemide 20 mg tablet TAKE ONE-HALF TABLET EVERY MORNING active Not Available Not Available No t Available albuterol sulfate HFA 90 mcg/actuatio n aerosol inhaler INHALE TWO PUFFS FOUR TIMES DAILY active Not Available Not Available Not Available loratadine 10 mg tablet TAKE ONE TABLET DAILY active Not Available Not Available No t Available Mucinex 600 mg tablet, extended release TAKE ONE TABLET EVERY TWELVE HOURS active Not Available Not Available No t Available azithromycin 500 mg tablet TAKE ONE TABLET DAILY UNTIL FINISHED active Not Available Not Available No t Available cyclobenzapr ine 5 mg tablet TAKE ONE TABLET TWICE DAILY active Not Available Not Available Not Available rosuvastatin 40 mg tablet TAKE ONE TABLET AT BEDTIME active Not Available Not Available No t Available topiramate 50 mg tablet TAKE ONE TABLET AT BEDTIME active Not Available Not Available No t Available pregabalin 50 mg capsule TAKE ONE CAPSULE IN THE MORNING AND EVENING active Not Available Not Available Not Available FreeStyle Lite Strips TEST BLOOD SUGAR FOUR TIMES DAILY active Not Available Not Available Not Available FeroSul 325 mg (65 mg iron) tablet TAKE ONE TABLET EVERY OTHER DAY AT NOON active Not Available Not Available Not Available Flovent Diskus 250 mcg/actuatio n powder for inhalation INHALE ONE PUFFS BY MOUTH TWICE DAILY RINSE MOUTH AFTER USE active Not Available Not Available No t Available TRUEplus Lancets 33 gauge TEST BLOOD SUGAR FOUR TIMES DAILY active Not Available Not Available Not Available Eliquis 5 mg tablet TAKE ONE TABLET IN THE MORNING AND EVENING active Not Available Not Available Not Available Jardiance 25 mg tablet TAKE ONE TABLET EVERY MORNING active Not Available Not Available No t Available Pentips Pen Needle 31 gauge x 3/16 USE FOUR TIMES DAILY active Not Available Not Available Not Available Tresiba FlexTouch U-200 insulin 200 unit/mL (3 mL) subcutaneous pen INJECT 52 UNITS SUBCUTANEOU SLY DAILY active Not Available Not Available No t Available Vitals Date Recorded Body weight Body temperature Respiratory rate Heart rate Body height Oxygen saturation Oxygen saturation in Arterial blood by Pulse oximetry Systolic And Diastolic Provider Name and Address Organization Details Last Updated DateTime 5 08120.8 g 98 [degF] 14 /min 60 /min 167.64 cm 98 % 98 % 126/80 mm[Hg] Not Available [facility] - production 14:10:35 Social History None recorded. Functional Status None recorded. Mental Status None recorded. Family History Nothing Reported. Medical History No medical history recorded. Past Encounters Encounter ID Performer Location Encounter Start Date Encounter Closed Date Diagnosis/Indication Diagnosis SNOMED-CT Code Diagnosis ICD10 Code Diagnosis Note [id number] CUCA ERICKSON MD [facility] [address] [place] [phone] 11/13/2024 14:08:40 11/13/2024 21:57:13 Generalized abdominal pain 282352809 R10.84 Health Concerns Section Related Observation LastModified by Organization Detai ls LastModified Time None Recorded Concern Status LastModified by Organization Details LastModified Time None Recorded Advance Directives Directive None Recorded Payers Insurance Date Sequence Insurance Name Policy Number Policy Villela Covered Member ID Villela Member ID Guarantor Name 12/09/2024 1 [facility] - DOS ON OR AFTER 2022 - DUAL ELIGIBLE - INTERMEDIATE OPTIONS AND ONE CARE (MEDICARE REPLACEMENT/ADV ANTAGE - HMO) Pb Vides [id number] Pb Vides Notes Date Note Type Note Provider Name and Address Organization Details Recorded Time 11/13/2024 text/html ROS as noted in the [facility] Nurse Triage Notes (Elvin Louie): Reason For Request: pt is experiencing stomach pain Patient Reports: Sharp focal or diffuse abdominal pain ; Vague abdominal pain greater than 24 hours; Inability to tolerate foods, fluids or daily medicationsDenies: Vomiting blood/coffee ground material Bloating, jaundice new onset with pain Nausea and vomiting greater than 2 hours with abdominal pain Tearing pain that radiates to back Food Impaction Constipation Diarrhea no blood in stool Nausea with or without vomiting Chief Complaints: Abdominal PainPMH: Diabetes Mellitus Type 2, Deep Vein Thrombosis, Dementia (e.g., Alzheimer's Disease)PMH Reviewed at 11/13/2024 12:49Allergies Reviewed at 11/13/2024 12:49Comments: 79 y.o male complains of Abdominal Pain - Since 10/31/24 - Recently was hospitalized - DX with a hernia and then discharged from the hospital on 11/08 and is awaiting surgery. CG reports the pt is feeling unwell with generalized abdominal pain - CG reports the pt went to the ER last night - LWBS. Increased pain - Weakness. Pain is reported as 04/10 CG reports the was prescribed Tramadol x 10 pills when he was discharged on 11/08 and reports the pt is now out of same. Taking Tylenol and Motrin with no relief. Decreased PO intake Wellness check requested - ER treatment declined. I provided information on the mobile health provider response time and advised the patient and/or caregiver to monitor reported signs and symptoms. I discussed the warning signs of when to seek emergency care. CG reports the pt is feeling unwell with generalized abdominal pain Relay Telegrapher Organization Information for [facility] [employer] Name: [facility] Transportation Address: [address] [place] [address], [place] [address], [place] Room Worker: Regino Caro MD [place] No.: [id number] Relay Telegrapher POC Test Results from [facility] (14:27:17) pH: 7.455 pH units pCO2: 34.6 mmHg pO2: 43.5 mmHg Na: 141 mmol/L K: 4.0 mmol/L iCa: 1.12 mmol/L Cl: 103 mmol/L TCO2: 23.4 mEq/L Hct: 43 % Hb: 14.7 g/dL Glu: 318 mg/dL Lac: 1.76 mmol/L Cr: 0.94 mg/dL BUN: 26 mg/dL A mmol/L HCO3: 24.4 mmol/L .................... .................... .................... .................... .................... .................... .................... . Relay Telegrapher Note From [facility]: Patient alert and oriented laying on right side on couch. Patient complains of right lower quadrant abdominal pain times two weeks. Patient diagnosed with hernia has surgery scheduled. Patient ran out of tramadol yesterday. Patient denies fever, chills, nausea, vomiting, diarrhea, black or bloody stools or any other pain or complaints. Patient reports normal BM yesterday, denies urinary symptoms. Patient, pink warm, dry, secondary exam unremarkable, appears uncomfortable, no guarding, tenderness noted right lower quadrant no rebound tenderness, no masses or bruising. Patient speaks full sentences negative increased work of breathing extremities unremarkable no edema noted. [facility] orders EPOC. [facility] orders Toradol 15 mg IM now and use Tylenol for pain. Medication administered as ordered without complication using five rights. Red flags, patient education discussed. Patient and caregiver demonstrating understanding of care and plan. [facility] Lab Orders: BMP, serum or plasma: Performed [facility] Medication Orders: ketorolac 30 mg/mL injection solution: Administered .................... .................... .................... .................... .................... .................... .................... . [facility] Consulted: Cuca Erickson .................... .................... .................... .................... .................... .................... .................... . Disposition: Henri ERICKSON MD [address] [facility],[address], [place], [phone], [employer] 11/13/2024 16:35:08
--- OUTSIDE RECORDS SUMMARY | 2025-01-21 12:22 | XMS_ITS | Clinical Summary ---
Author Organization [facility] Address [address] [place] [address] Phone Care Team Providers Care Humanities Professor Name Role Phone Agnes Prieto MD Primary Care Provider [phone] Allergies No known active allergies Medications LORazepam (Ativan) 1 mg tablet Take 0.5 tablets (0.5 mg total) by mouth at bedtime as needed for sleep for up to 10 days. Max Daily Amount: 0.5 mg 5 tablet 11/01/19 25 Active Additional Information Patient not taking.Reported on 12/09/2024 Eliquis 5 mg tablet Take 1 tablet (5 mg total) by mouth 2 (two) times a day. 11/01/19 25 Active dorzolamide-justine loL (COSOPT) 22.3-6.8 mg/mL ophthalmic solution Administer 1 drop into both eyes 2 (two) times a day. 11/01/19 25 Active Jardiance 25 mg tablet Take 1 tablet (25 mg total) by mouth 1 (one) time each day in the morning. Active ferrous sulfate 325 mg (65 mg elemental iron) tablet Take 1 tablet (325 mg total) by mouth every other day. TAKE 1 TABLET AT NOON 07/25/19 22 Active furosemide (LASIX) 20 mg tablet Take 0.5 tablets (10 mg total) by mouth 1 (one) time each day. Active Tresiba FlexTouch U-200 200 unit/mL (3 mL) CONCENTRATED injection pen Inject 30 Units under the skin at bedtime. 07/25/19 22 Active Ren Salmon U-100 Insulin 100 unit/mL injection pen Inject 2-10 Units under the skin 3 (three) times a day before meals. 07/25/19 22 Active losartan (COZAAR) 25 mg tablet Take 1 tablet (25 mg total) by mouth 1 (one) time each day in the morning. 03/10/20 24 Active melatonin 3 mg tablet Take 1 tablet (3 mg total) by mouth at bedtime. 08/04/19 22 Active metFORMIN (GLUCOPHAGE) 1,000 mg tablet Take 1 tablet (1,000 mg total) by mouth 2 (two) times a day with meals. 08/22/19 22 Active omeprazole (PriLOSEC) [address] capsule Take 1 capsule (20 mg total) by mouth 1 (one) time each day in the morning. Active rosuvastatin (CRESTOR) 40 mg tablet Take 1 tablet (40 mg total) by mouth at bedtime. Active sertraline (ZOLOFT) 25 mg tablet Take 1 tablet (25 mg total) by mouth 1 (one) time each day in the morning. 08/08/19 23 Active topiramate (TOPAMAX) 25 mg tablet Take 1 tablet (25 mg total) by mouth 1 (one) time each day if needed (migraines). 09/25/19 25 Active methadone (METHADOSE) 40 mg dispersible tablet Take 0.5 tablets (20 mg total) by mouth 1 (one) time each day. Max Daily Amount: 20 mg Active oxyCODONE (ROXICODONE) 5 mg immediate release tabletIndication s:Acute cholecystitis,Um bilical hernia without obstruction and without gangrene Take 1 tablet (5 mg total) by mouth every 6 (six) hours if needed for severe pain. Max Daily Amount: 20 mg 3 tablet 12/12/19 25 025 Discontinu ed( ) oxyCODONE (ROXICODONE) 5 mg immediate release tabletIndication s:Postoperative pain Take 1 tablet (5 mg total) by mouth every 6 (six) hours if needed for severe pain. Max Daily Amount: 20 mg 15 tablet 12/18/19 25 025 Discontinu ed( ) oxyCODONE (ROXICODONE) 5 mg immediate release tabletIndication s:AC separation, left, subsequent encounter Take 1 tablet (5 mg total) by mouth 2 (two) times a day if needed for severe pain for up to 8 days. Max Daily Amount: 10 mg 8 tablet 01/11/20 25 025 Active Problems Problem Noted Date Diagnosed Date Umbilical hernia without obstruction and without gangrene 11/25/2024 Resolved Problems Problem Noted Date Diagnosed Date Resolved Date Acute cholecystitis 12/09/2024 12/12/19 25 Encounters Date Type Department Care Team Description 01/10/2025 8:28 PM EDT - 01/10/2025 10:28 PM EDT [facility] Emergency [address] [place] [phone] Connor Domingo MD AC separation, left, subsequent encounter (Primary Dx); Acute pain of left shoulder due to trauma Discharge Disposition: Home or Self Care 01/01/2025 8:40 PM EDT - 01/02/2025 12:12 AM EDT [address] [phone] Ramy Fuentes MD Fall, initial encounter (Primary Dx); Shoulder strain, left, initial encounter Discharge Disposition: Home or Self Care 12/25/2024 9:00 AM EDT Office Visit [address] [phone] Philip Valadez MD S/P laparoscopic cholecystectomy (Primary Dx); S/P umbilical hernia repair, follow-up exam; Pain in both testicles 12/17/2024 - 12/17/2024 9:49 PM EDT [facility] Emergency [address] [place] [phone] Discharge Disposition: ED Dismiss - Never Arrived 12/16/2024 8:46 PM EDT - 12/17/2024 7:28 AM EDT [facility] Emergency [address] [place] [phone] Postoperative pain (Primary Dx); Pain Discharge Disposition: Home or Self Care 12/10/2024 8:30 AM EDT - 12/10/2024 10:30 AM EDT Surgery [facility] Main OR [address] [place] [address] Philip Valadez MD CHOLECYSTECTOMY LAPAROSCOPIC WITH INTRAOPERATIVE CHOLANGIOGRAM, 12/10/2024 8:29 AM EDT Anesthesia Event [facility] Main OR [address] [place] [phone] Diann Story MD Dusza, Sara, CRNA 12/09/2024 9:15 AM EDT - 12/11/2024 2:43 PM EDT Hospital Encounter [facility] Medical Surgical Unit [address] [place] [address] Juan R Osorio, Philip Tyson MD Kokosadze, Estate, MD Acute cholecystitis (Primary Dx); Umbilical hernia without obstruction and without gangrene Discharge Disposition: Home or Self Care 11/25/2024 1:30 PM EDT Office Visit Bariatric Surgery - [place] [address] [phone] Angie Flores MD Umbilical hernia without obstruction and without gangrene (Primary Dx); Calculus of gallbladder without cholecystitis without obstruction; Left inguinal hernia; Type 2 diabetes mellitus with obesity ([facility] V24, [facility] V28); Heart valve replaced 11/16/2024 5:54 PM EDT - 11/17/2024 12:26 AM EDT Emergency [facility] Emergency [address] [place] [phone] Generalized abdominal pain (Primary Dx) Discharge Disposition: Home or Self Care 11/13/2024 7:12 AM EDT - 11/13/2024 8:07 AM EDT Emergency [facility] Emergency [address] [place] [phone] Discharge Disposition: Left Against Medical Advice 11/08/2024 6:42 AM EDT - 11/08/2024 4:07 PM EDT Emergency [facility] Emergency [address] [place] [phone] Philip Clay MD Hernia of anterior abdominal wall (Primary Dx); Chest pain, unspecified type; Generalized abdominal pain Discharge Disposition: Home or Self Care 10/31/2024 5:15 PM EDT - 11/01/2024 1:09 AM EDT Emergency [facility] Emergency [address] [place] [phone] Enrique Carrasquillo MD Cheng, Roderickdevon Rayny, DO Weakness (Primary Dx) Discharge Disposition: Home or Self Care from Last 3 Months Surgical History Surgery Date Site/Laterality Comments CARDIAC VALVE REPLACEMENT APPENDECTOMY Medical History Medical History Date Comments Diabetes ([facility] V24, [facility] V28) DVT, recurrent, lower extrem ity, acute, right ([facility] V24, [facility] V28) Hypertension GERD (gastroesophageal reflux disease) Hyperlipidemia Anxiety Iron deficiency anemia Drug abuse ([facility] V24, [facility] V28) Alcohol abuse Social History Tobacco Use Types Packs/Day Years Used Date Smoking Tobacco: Every Day Cigarettes Smokeless Tobacco: Former Tobacco Cessation:Ready to Q uit: Not Asked; Counseling Given: Not Answered Alcohol Use Standard Drinks/Week Comments Yes 0 (1 standard drink = 0.6 oz pur e alcohol) Food Risk Answer Date Recorded Within the past 12 months we worried whether our food would run out before we got money to buy more. Not asked 12/11/2024 Within the past 12 months th e food we bought just didn't last and we didn't have money to get more. Not asked 12/11/2024 Interpersonal Safety Answer Date Record ed Physical Abuse 12/09/2024 Verbal Abuse 12/09/2024 Sex and Gender Information Value Date Recorded Sex Assigned at Not on file Legal Sex Male 4:16 AM EST Gender Identity Not on file Sexual Orientation Not on file Obstetrics History Last Filed Vital Signs Vital Sign Reading Time Taken Comments Blood Pressure 134/75 01/10/2025 8:44 PM EDT Pulse 69 01/10/2025 8:44 PM EDT Temperature 36.7 C (98.1 F) 01/10/2025 8:44 PM EDT Respiratory Rate 18 01/10/2025 8:44 PM EDT Oxygen Saturation 99% 01/10/2025 8:44 PM EDT Inhaled Oxygen Concentration - - Weight 78.5 kg (173 lb) 01/10/2025 9:07 PM EDT Height 162.6 cm (5' 4 ) 01/10/2025 9:07 PM EDT Body Mass Index 29.7 01/10/2025 9:07 PM EDT Plan of Treatment Health Maintenance Due Date Last Done Comments Diabetes: Annual Foot Exam 1955 Diabetes: Annual Retina Eye Exam 1955 Hepatitis A Vaccines (1 of 2 - Risk 2-dose series) 1966 Zoster Vaccines (1 of 2) 1997 Hepatitis B Vaccines (2 of 3 - 19+ 3-dose series) 09/10/2012 08/13/2012 RSV Immunization Adult Patients (1 - 1-dose 75+ series) 2022 Hepatitis C Screening 06/11/2022 Medicare Annual Wellness Visit 06/11/2022 COVID-19 Vaccine ( season) 2024 12/30/2021, 06/22/2021, 05/28/2021 Diabetes: Annual Urine Albumin-Creatinine Ratio (uACR) 05/30/2024 Depression Screening 07/02/2024 Influenza Vaccine (#1) 2025 07/20/2023 Diabetes: Blood Sugar Control Test (HGBA1C) 06/23/2025 12/22/2024, 09/15/2024, 05/14/2024 Falls Risk Assessment 12/11/2025 12/11/2024 Social Influencers of Health Screening 12/11/2025 12/11/2024 Diabetes: Annual GFR (Glomerular Filtration Rate) 01/10/2026 01/10/2025, 12/16/2024, 12/11/2024, Additional history exists Hypertension/CHF/CAD Annual BMP Blood Test 01/10/2026 01/10/2025, 12/16/2024, 12/11/2024, Additional history exists Cholesterol Screening (Lipid Panel) 09/15/2029 09/15/2024 DTaP,Tdap,and Td Vaccines (2 - Td or Tdap) 07/20/2033 07/20/2023 Pneumococcal Vaccine: 50+ Years Completed 07/20/2023 HIB Vaccines Aged Out No longer eligi ble based on patient's age to complete this topic HPV Vaccines Aged Out No longer eligi ble based on patient's age to complete this topic IPV Vaccines Aged Out No longer eligi ble based on patient's age to complete this topic MMR Vaccines Aged Out No longer eligi ble based on patient's age to complete this topic Meningococcal ACWY Vaccine Aged Out N o longer eligible based on patient's age to complete this topic Meningococcal B Vaccine Aged Out No l onger eligible based on patient's age to complete this topic RSV Immunization Patients Under 20 months Aged Out No longer eligible based on patient's age to complete this topic Varicella Vaccines Aged Out No longer eligible based on patient's age to complete this topic Procedures Procedure Name Priority Date/Time Associated Diagnosis Comments ECG ANNOTATED 01/12/2025 TROPONIN I HIGH SENSITIVITY STAT 01/10/2025 10:01 PM EDT POCT GLUCOSE BLOOD Routine 01/10/2025 9: 46 PM EDT XR SHOULDER 2+ VIEWS LEFT STAT 01/10/2025 9:36 PM EDT ECG 12-LEAD STAT 01/10/2025 9:20 PM EDT CREATINE KINASE STAT Add-on 01/10/2025 9:04 PM EDT CBC WITH AUTO DIFFERENTIAL STAT 01/10/2025 9:04 PM EDT TROPONIN I HIGH SENSITIVITY STAT 01/10/2025 9:04 PM EDT MAGNESIUM STAT 01/10/2025 9:04 PM EDT BASIC METABOLIC PANEL STAT 01/10/2025 9:04 PM EDT CBC AND DIFFERENTIAL STAT 01/10/2025 9:[address] CERVICAL SPINE WO CONTRAST STAT 01/01/2025 9:[address] HEAD WO CONTRAST STAT 01/01/2025 9 :56 PM EDT XR SHOULDER 2+ VIEWS LEFT STAT 01/01/2025 9:22 PM EDT ECG ANNOTATED 12/18/2024 POCT GLUCOSE BLOOD Routine 12/17/2024 3: 54 AM EDT POCT GLUCOSE BLOOD Routine 12/17/2024 2: 45 AM EDT POCT GLUCOSE BLOOD Routine 12/17/2024 12 :53 AM EDT TROPONIN I HIGH SENSITIVITY STAT 12/16/2024 11:00 PM EDT XR CHEST 2 VIEWS STAT 12/16/2024 9:48 PM EDT LIPASE STAT Add-on 12/16/2024 9:32 PM EDT SST - GOLD Routine 12/16/2024 9:32 PM EDT EXTRA TUBES Routine 12/16/2024 9:32 PM EDT B-TYPE NATRIURETIC PEPTIDE STAT 12/16/2024 9:32 PM EDT COMPREHENSIVE METABOLIC PANEL STAT 12/16/2024 9:32 PM EDT CBC WITH AUTO DIFFERENTIAL STAT 12/16/2024 9:32 PM EDT TROPONIN I HIGH SENSITIVITY STAT 12/16/2024 9:32 PM EDT CBC AND DIFFERENTIAL STAT 12/16/2024 9:32 PM EDT ECG 12-LEAD STAT 12/16/2024 9:20 PM EDT POCT GLUCOSE BLOOD Routine 12/11/2024 11 :33 AM EDT POCT GLUCOSE BLOOD Routine 12/11/2024 8: 16 AM EDT CBC WITH AUTO DIFFERENTIAL Routine 12/11/2024 7:00 AM EDT HEPATIC FUNCTION PANEL Routine 7:00 AM EDT MAGNESIUM Routine 12/11/2024 7:00 AM EDT BASIC METABOLIC PANEL Routine 12/11/2024 7:00 AM EDT CBC AND DIFFERENTIAL Routine 12/11/2024 7:00 AM EDT POCT GLUCOSE BLOOD Routine 12/10/2024 7: 59 PM EDT POCT GLUCOSE BLOOD Routine 12/10/2024 5: 01 PM EDT XR CHEST 1 VIEW STAT 12/10/2024 3:03 PM EDT POCT GLUCOSE BLOOD Routine 12/10/2024 11 :49 AM EDT XR CHOLANGIOGRAM INTRAOPERATIVE Routine 12/10/2024 10:43 AM EDT TISSUE EXAM Routine 12/10/2024 10:10 AM EDT Acute cholecystitis TH AN ENDOTRACHEAL(NO CHARGE) Routine 12/10/2024 8:53 AM EDT REPAIR HERNIA UMBILICAL 12/10/2024 8:31 AM EDT Acute cholecystitis CHOLECYSTECTOMY LAPAROSCOPIC 12/10/2024 8:31 AM EDT Acute cholecystitis POCT GLUCOSE BLOOD Routine 12/10/2024 8: 01 AM EDT LIPASE Add-On 12/10/2024 6:49 AM EDT COMPLETE BLOOD COUNT Routine 12/10/2024 6:49 AM EDT COMPREHENSIVE METABOLIC PANEL Routine 12/10/2024 6:49 AM EDT POCT GLUCOSE BLOOD Routine 12/09/2024 10 :[address] ABDOMEN PELVIS W CONTRAST STAT 12/09/2024 11:11 AM EDT TROPONIN I HIGH SENSITIVITY STAT 12/09/2024 10:48 AM EDT ECG 12-LEAD STAT 12/09/2024 9:40 AM EDT TROPONIN I HIGH SENSITIVITY STAT 12/09/2024 9:37 AM EDT LIPASE STAT 12/09/2024 9:37 AM EDT CBC WITH AUTO DIFFERENTIAL STAT 12/09/2024 9:37 AM EDT CBC AND DIFFERENTIAL STAT 12/09/2024 9:37 AM EDT COMPREHENSIVE METABOLIC PANEL STAT 12/09/2024 9:37 AM EDT US ABDOMEN LIMITED STAT 11/16/2024 10 :49 PM EDT URINALYSIS WITH REFLEX MICROSCOPIC STAT 11/16/2024 9:52 PM EDT URINALYSIS WITH REFLEX MICROSCOPIC STAT 11/16/2024 9:[address] ABDOMEN PELVIS W CONTRAST STAT 11/16/2024 9:01 PM EDT LACTATE, WITH REFLEX STAT 11/16/2024 8:07 PM EDT CBC WITH AUTO DIFFERENTIAL STAT 11/16/2024 3:36 PM EDT LIPASE STAT 11/16/2024 3:36 PM EDT COMPREHENSIVE METABOLIC PANEL STAT 11/16/2024 3:36 PM EDT CBC AND DIFFERENTIAL STAT 11/16/2024 3:36 PM EDT ECG ANNOTATED 11/14/2024 ECG 12-LEAD STAT 11/13/2024 12:31 AM EDT CBC WITH AUTO DIFFERENTIAL STAT 11/13/2024 12:25 AM EDT LIPASE STAT 11/13/2024 12:25 AM EDT COMPREHENSIVE METABOLIC PANEL STAT 11/13/2024 12:25 AM EDT CBC AND DIFFERENTIAL STAT 11/13/2024 12:25 AM EDT ECG ANNOTATED 11/10/2024 CT ANGIO CHEST WO AND/OR W CONTRAST STAT 11/08/2024 2:19 PM EDT Chest pain, unspecified type CT ABDOMEN PELVIS W CONTRAST STAT 11/08/2024 2:19 PM EDT XR CHEST 1 VIEW STAT 11/08/2024 8:34 AM EDT MEZA URINE CULTURE TUBE STAT 11/08/2024 8:33 AM EDT URINALYSIS WITH REFLEX MICROSCOPIC AND CULTURE STAT 11/08/2024 8:33 AM EDT URINALYSIS WITH REFLEX MICROSCOPIC AND CULTURE STAT 11/08/2024 8:33 AM EDT TROPONIN I HIGH SENSITIVITY STAT 11/08/2024 8:19 AM EDT [id number], RSV, FLU A AND B QUALITATIVE RT-PCR, INTERNAL LAB STAT 11/08/2024 8:19 AM EDT ECG 12-LEAD STAT 11/08/2024 8:11 AM EDT CBC WITH AUTO DIFFERENTIAL STAT 11/08/2024 7:23 AM EDT LIPASE STAT 11/08/2024 7:23 AM EDT COMPREHENSIVE METABOLIC PANEL STAT 11/08/2024 7:23 AM EDT CBC AND DIFFERENTIAL STAT 11/08/2024 7:23 AM EDT ECG ANNOTATED 11/03/2024 POCT GLUCOSE BLOOD Routine 10/31/2024 10 :05 PM EDT XR CHEST 2 VIEWS STAT 10/31/2024 8:50 PM EDT AMMONIA STAT 10/31/2024 8:24 PM EDT MEZA URINE CULTURE TUBE STAT 10/31/2024 8:05 PM EDT URINALYSIS WITH REFLEX MICROSCOPIC AND CULTURE STAT 10/31/2024 8:05 PM EDT URINALYSIS WITH REFLEX MICROSCOPIC AND CULTURE STAT 10/31/2024 8:[address] HEAD WO CONTRAST STAT 10/31/2024 7 :43 PM EDT [id number], RSV, FLU A AND B QUALITATIVE RT-PCR, INTERNAL LAB STAT 10/31/2024 6:05 PM EDT CREATINE KINASE Add-On 10/31/2024 6:04 PM EDT THYROID STIMULATING HORMONE WITH REFLEX TO FREE T4 AND FREE T3 STAT Add-on 10/31/2024 6:04 PM EDT CBC WITH AUTO DIFFERENTIAL STAT 10/31/2024 6:04 PM EDT MAGNESIUM STAT 10/31/2024 6:04 PM EDT CBC AND DIFFERENTIAL STAT 10/31/2024 6:04 PM EDT COMPREHENSIVE METABOLIC PANEL STAT 10/31/2024 6:04 PM EDT ECG 12-LEAD STAT 10/31/2024 5:39 PM EDT from Last 3 Months Results * ECG-Annotated (01/12/2025) Only the most recent of5 resultswithin the time period is included. Provider Onbase ECG ORDERABLES Final Result * Troponin I high sensitivity (01/10/2025 10:01 PM EDT) Only the most recent of7 resultswithin the time period is included. [facility] High Sensitivity Troponin I 5 <=79 ng/L LAB CHEMISTRY METHOD 01/10/2025 10:57 PM EDT [facility] Blood Venous blood specimen / Unknown Venipuncture / Unknown 01/10/2025 10:01 PM EDT 01/10/2025 10:31 PM EDT Narrative [facility] - 01/10/2025 10:57 PM EDT High levels of biotin in samples may falsely decrease hsTroponin values. Use caution when interpreting hsTroponin results in patients taking biotin who exhibit renal impairment (eGFR <60) or in patients taking more than 20 mg/day of biotin. Connor Domingo MD LAB BLOOD ORDERABLES Final Res ult [facility] [address] [place] [address], * (ABNORMAL) POCT Glucose, blood (01/10/2025 9:46 PM EDT) Only the most recent of12 resultswithin the time period is included. [facility] Glucose POCT 186(H) 70 - 100 mg/dL 01/10/2025 9:47 PM EDT [facility] Blood Capillary blood specimen / Unknown 01/10/2025 9:46 PM EDT 01/10/2025 9:48 PM EDT us Connor Domingo MD LAB POINT OF CARE TE ST DOCKED DEVICE UNSOLICITED RESULTS Final Result [facility] [address] [place] [address], * XR Shoulder 2+ Views Left (01/10/2025 9:36 PM EDT) Only the most recent of2 resultswithin the time period is included. Anatomical Region Laterality Modality Upper Extremities, Shoulder Left Radi ographic Imaging 01/11/2025 9:09 AM EDT Impressions 01/11/2025 9:11 AM EDT Findings suggestive of a low-grade acromioclavicular joint separation. -------- FINAL REPORT -------- Dictated By: Hernan Van Dictated Date: 01/11/2025 09:09 ET Assigned Physician: Hernan Van Reviewed and Electronically Signed By: Hernan Van Signed Date: 01/11/2025 09:11 ET Workstation ID: [id number] Transcribed By: Self Edit Transcribed Date: 01/11/2025 09:09 ET Narrative 01/11/2025 9:11 AM EDT PROCEDURE: Radiographs of the left shoulder. HISTORY: pain. COMPARISON: 01/01/2025. FINDINGS: Bones appear demineralized. No fracture. The distal left clavicle is superiorly displaced relative to the acromion Several remote healed left posterior rib fractures. Sternotomy wires. Mildly tortuous aorta with atherosclerotic calcifications. Mild degenerative changes of the glenohumeral joint. The articular soft tissues are normal. Procedure Note Hernan Van MD - 01/11/2025 PROCEDURE: Radiographs of the left shoulder. HISTORY: pain. COMPARISON: 01/01/2025. FINDINGS: Bones appear demineralized. No fracture. The distal left clavicle issuperiorly displaced relative to the acromion Several remote healed leftposterior rib fractures. Sternotomy wires. Mildly tortuous aorta withatherosclerotic calcifications. Mild degenerative changes of theglenohumeral joint. The articular soft tissues are normal. IMPRESSION: Findings suggestive of a low-grade acromioclavicular joint separation. -------- FINAL REPORT -------- Dictated By: Hernan Van Dictated Date: 01/11/2025 09:09 ET Assigned Physician: Hernan Van Reviewed and Electronically Signed By: Hernan Van Signed Date: 01/11/2025 09:11 ET Workstation ID: [id number] Transcribed By: Self Edit Transcribed Date: 01/11/2025 09:09 ET Connor Domingo MD IMG XR PROCEDURES Final Result * ECG 12 lead (01/10/2025 9:20 PM EDT) Only the most recent of6 resultswithin the time period is included. Ventricular Rate ECG 66 BPM GEMUSE Atrial Rate 66 BPM GEMUSE P-R Interval 152 ms GEMUSE QRS Duration 84 ms GEMUSE Q-T Interval 424 ms GEMUSE QTc 444 ms GEMUSE P Wave Conway -8 degrees GEMUSE R Conway -13 degrees GEMUSE T Conway 53 degrees GEMUSE ECG Interpretation Normal sinus rhythm Nonspecific T wave abnormality Abnormal ECG When compared with ECG of 16-DEC-2024 21:20, Premature ventricular complexes are no longer Present Nonspecific T wave abnormality now evident in Anterior leads Confirmed by YANN CHOPRA ([id number]) on 01/11/2025 11:05:48 AM GEMUSE 01/10/2025 9:20 PM EDT 01/11/2025 11:05 AM EDT Connor Domingo MD ECG ORDERABLES Final Result GEMUSE * (ABNORMAL) CBC auto differential (01/10/2025 9:04 PM EDT) Only the most recent of8 resultswithin the time period is included. Pathologist [facility] WBC 8.3 4.8 - 10.8 K/[facility] LAB HEMETOLOGY METHOD 01/10/2025 9:35 PM EDT [facility] RBC 4.30(L) 4.50 - 5.50 M/mcL LAB HEMETOLOGY METHOD 01/10/2025 9:35 PM EDT [facility] Hemoglobin 12.4(L) 13.5 - 17.5 g/dL LAB HEMETOLOGY METHOD 01/10/2025 9:35 PM EDT [facility] Hematocrit 37.1(L) 42.0 - 54.0 % LAB HEMETOLOGY METHOD 01/10/2025 9:35 PM EDT [facility] MCV 87.3 79.0 - 98.0 FL LAB HEMETOLOGY METHOD [facility] MCH 29.2 27.0 - 32.0 pcg LAB HEMETOLOGY METHOD 01/10/2025 9:[facility] MCHC 33.4 32.0 - 37.0 g/dL LAB HEMETOLOGY METHOD 01/10/2025 9:35 PM T [facility] RDW 13.6 11.0 - 15.0 % LAB HEMETOLOGY METHOD 01/10/2025 9:35 PM EDT [facility] Platelets 167 130 - 400 K/mcL LAB HEMETOLOGY METHOD 01/10/2025 9:[facility] MPV 10.7 7.0 - 11.0 FL LAB HEMETOLOGY METHOD 01/10/2025 9:35 PM EDT [facility] NRBC 0.0 <1.0 % LAB HEMETOLOGY METHOD 01/10/2025 9:35 PM EDT [facility] NRBC Absolute 0.00 <0.10 K/mcL LAB HEMETOLOGY METHOD 01/10/2025 9:35 PM EDT [facility] Neutrophils Relative 60.9 % LAB HEMETOLOGY METHOD 01/10/2025 9:35 PM EDT [facility] Lymphocytes Relative 29.9 % LAB HEMETOLOGY METHOD 01/10/2025 9:35 PM EDT [facility] Monocytes Relative 6.0 % LAB HEMETOLOGY METHOD 01/10/2025 9:35 PM EDT [facility] Eosinophils Relative 2.3 % LAB HEMETOLOGY METHOD 01/10/2025 9:35 PM EDT [facility] Basophils Relative 0.5 % LAB HEMETOLOGY METHOD 01/10/2025 9:35 PM T [facility] Immature Granulocytes Relative 0.4 % LAB HEMETOLOGY METHOD 01/10/2025 9:[facility] Neutrophils Absolute 5.09 1.50 - 7.00 K/mcL LAB HEMETOLOGY METHOD 01/10/2025 9:35 PM T [facility] Lymphocytes Absolute 2.49 1.00 - 5.00 K/mcL LAB HEMETOLOGY METHOD 01/10/2025 9:35 PM EDT [facility] Monocytes Absolute 0.50 0.20 - 1.00 K/mcL LAB HEMETOLOGY METHOD 01/10/2025 9:35 PM EDT [facility] Eosinophils Absolute 0.19 0.00 - 0.50 K/mcL LAB HEMETOLOGY METHOD 01/10/2025 9:35 PM EDT [facility] Basophils Absolute 0.04 0.00 - 0.20 K/mcL LAB HEMETOLOGY METHOD 01/10/2025 9:35 PM T [facility] Immature Granulocytes Absolute 0.03 0.00 - 0.03 K/mcL LAB HEMETOLOGY METHOD 01/10/2025 9:35 PM [facility] Blood Venous blood specimen / Unknown Venipuncture / Unknown 01/10/2025 9:04 PM EDT 01/10/2025 9:25 PM EDT us Connor Domingo MD LAB BLOOD ORDERABLES Final Res ult Performing Organization Address City/[facility]/ZIP Co de Phone Number [facility] [address] [place] [address], [place] [phone] * (ABNORMAL) Magnesium (01/10/2025 9:04 PM EDT) Only the most recent of3 resultswithin the time period is included. Pathologist [facility] Magnesium 1.8(L) 1.9 - 2.6 mg/dL LAB CHEMISTRY METHOD 01/10/2025 10:02 PM EDT [facility] Blood Venous blood specimen / Unknown Venipuncture / Unknown 01/10/2025 9:04 PM EDT 01/10/2025 9:25 PM EDT us Connor Domingo MD LAB BLOOD ORDERABLES Final Res ult Performing Organization Address [facility] [facility]/ZIP Co de Phone Number [facility] [address] [place] [address], [place] [phone] * Cardiac Enzymes - CPK (01/10/2025 9:04 PM EDT) Only the most recent of2 resultswithin the time period is included. [facility] Total CK 53 22 - 269 unit/L LAB CHEMISTRY METHOD 01/10/2025 10:02 PM EDT [facility] Blood Venous blood specimen / Unknown Venipuncture / Unknown 01/10/2025 9:04 PM EDT 01/10/2025 9:25 PM EDT us Connor Domingo MD LAB BLOOD ORDERABLES Final Res ult Performing Organization Address City/[facility]/ZIP Co de Phone Number [facility] [address] [place] [address], [place] [phone] * (ABNORMAL) Basic metabolic panel (01/10/2025 9:04 PM EDT) Only the most recent of2 resultswithin the time period is included. Sodium 138 133 - 145 mmol/L LAB CHEMISTRY METHOD 01/10/2025 10:02 PM [facility] Potassium 4.2 3.5 - 5.5 mmol/L LAB CHEMISTRY METHOD 01/10/2025 10:02 PM [facility] Chloride 107 96 - 110 mmol/L LAB CHEMISTRY METHOD 01/10/2025 10:02 PM [facility] CO2 26 21 - 32 mmol/L LAB CHEMISTRY METHOD 01/10/2025 10:02 PM [facility] Anion Gap 5 3 - 11 LAB CHEMISTRY METHOD 01/10/2025 10:02 PM [facility] Glucose 219(H) 70 - 100 mg/dL LAB CHEMISTRY METHOD 01/10/2025 10:02 PM [facility] BUN 30(H) 5 - 25 mg/dL LAB CHEMISTRY METHOD 01/10/2025 10:02 PM [facility] Creatinine 1.12 0.70 - 1.30 mg/dL LAB CHEMISTRY METHOD 01/10/2025 10:02 PM [facility] eGFR 68 >=60 mL/min/1. 73m2 LAB CHEMISTRY METHOD 01/10/2025 10:02 PM [facility] Comment:Calculation based on the Chronic Kidney Disease Epidemiology Collaboration (CKD-EPI) equation refit without adjustment for race. BUN/Creatinine Ratio 26.8 LAB CHEMISTRY METHOD 01/10/2025 10:02 PM [facility] Calcium 9.1 8.5 - 10.5 mg/dL LAB CHEMISTRY METHOD 01/10/2025 10:02 PM [facility] Blood Venous blood specimen / Unknown Venipuncture / Unknown 01/10/2025 9:04 PM EDT 01/10/2025 9:25 PM EDT us Connor Domingo MD LAB BLOOD ORDERABLES Final Res ult [facility] [address] [place] [address], * CT Cervical Spine wo Contrast (01/01/2025 9:56 PM EDT) Anatomical Region Laterality Modality Spine, C-spine Computed Tomogra phy 01/01/2025 10:3 6 PM EDT Impressions 01/01/2025 10:36 PM EDT No acute findings. This document has been electronically signed by: Rory Fontenot MD on 01/01/2025 22:36:03 Narrative 01/01/2025 10:36 PM EDT INDICATION: Neck trauma (Age >= 65y) CT Cervical Spine WO Contrast COMPARISON: None provided FINDINGS: No acute fracture or malalignment. Degenerative changes in the spine. Soft tissues are normal. Lung apices are clear. Procedure Note Rory Fontenot MD - 01/01/2025 INDICATION: Neck trauma (Age >= 67y) CT Cervical Spine WO Contrast COMPARISON: None provided FINDINGS: No acute fracture or malalignment. Degenerative changes in the spine. Soft tissues are normal. Lung apices are clear. IMPRESSION: No acute findings. This document has been electronically signed by: Rory Fontenot MD on 01/01/2025 22:36:03 us Mildred Bolaños DO IMG CT PROCEDURES Final R esult * CT Head wo Contrast (01/01/2025 9:56 PM EDT) Only the most recent of2 resultswithin the time period is included. Anatomical Region Laterality Modality Head and Neck Computed Tomogra phy 01/01/2025 10:3 8 PM EDT Impressions 01/01/2025 10:38 PM EDT No acute intracranial findings. Nonemergent/incidental findings in the report. This document has been electronically signed by: Rory Fontenot MD on 01/01/2025 22:38:57 Narrative 01/01/2025 10:38 PM EDT INDICATION: Head trauma, mod-severe CT Head WO Contrast COMPARISON: CT - CT HEAD WO CONTRAST - 10/31/24 19:25 EDT FINDINGS: No acute intracranial hemorrhage. No evidence of acute infarction. Diffuse cortical volume loss. Nonspecific white matter hypodensities, most commonly associated with chronic microangiopathic changes. 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 No mass-effect or midline shift. No hydrocephalus. Visualized orbits are normal. Clear paranasal sinuses. Clear mastoid air cells. No acute fracture. Unremarkable soft tissues. Procedure Note Rory Fontenot MD - 01/01/2025 INDICATION: Head trauma, mod-severe CT Head WO Contrast COMPARISON: CT - CT HEAD WO CONTRAST - 10/31/24 19:25 EDT FINDINGS: No acute intracranial hemorrhage. No evidence of acute infarction.Diffuse cortical volume loss. Nonspecific white matter hypodensities, most commonly associated with chronic microangiopathic changes. 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 No mass-effect or midline shift. No hydrocephalus. Visualized orbits are normal. Clear paranasal sinuses. Clear mastoid air cells. No acute fracture. Unremarkable soft tissues. IMPRESSION: No acute intracranial findings. Nonemergent/incidental findings in the report. This document has been electronically signed by: Rory Fontenot MD on 01/01/2025 22:38:57 us Roderickdevon Mcgee Silas Miky DO IMG CT PROCEDURES Final R esult * XR Chest 2 Views (12/16/2024 9:48 PM EDT) Only the most recent of2 resultswithin the time period is included. Anatomical Region Laterality Modality Body Radiographic Mary Carmen ging 12/17/2024 9:03 AM EDT Impressions 12/17/2024 9:13 AM EDT FINDINGS/IMPRESSION: No pneumonia or pulmonary edema. No pleural effusion or pneumothorax. Cardiac silhouette is normal in size with aortic valve prosthesis and median sternotomy noted. Degenerative changes seen throughout the bones. Cholecystectomy clips. -------- FINAL REPORT -------- Dictated By: DENNIS BOBO Dictated Date: 12/17/2024 09:03 ET Assigned Physician: DENNIS BOBO Reviewed and Electronically Signed By: DENNIS BOBO Signed Date: 12/17/2024 09:13 ET Workstation ID: [id number] Transcribed By: Self Edit Transcribed Date: 12/17/2024 09:03 ET Narrative 12/17/2024 9:13 AM EDT XR CHEST 2 VIEWS INDICATION: Dyspnea TECHNIQUE: XR CHEST 2 VIEWS COMPARISON: 12/10/2024. Procedure Note Dennis Bobo MD - 12/17/2024 XR CHEST 2 VIEWS INDICATION: Dyspnea TECHNIQUE: XR CHEST 2 VIEWS COMPARISON: 12/10/2024. IMPRESSION: FINDINGS/IMPRESSION: No pneumonia or pulmonary edema. No pleural effusionor pneumothorax. Cardiac silhouette is normal in size with aortic valveprosthesis and median sternotomy noted. Degenerative changes seenthroughout the bones. Cholecystectomy clips. -------- FINAL REPORT -------- Dictated By: DENNIS BOBO Dictated Date: 12/17/2024 09:03 ET Assigned Physician: DENNIS BOBO Reviewed and Electronically Signed By: DENNIS BOBO Signed Date: 12/17/2024 09:13 ET Workstation ID: [id number] Transcribed By: Self Edit Transcribed Date: 12/17/2024 09:03 ET Eva SIGALA IMG XR PROCEDURES Final Result * SST tube (12/16/2024 9:32 PM EDT) Extra Tube Hold for add-ons. 12/17/2024 1:01 AM EDT [facility] Comment:Auto resulted. Blood Venous blood specimen / Unknown Venipuncture / Unknown 12/16/2024 9:32 PM EDT 12/16/2024 11:12 PM EDT us Eva SIGALA LAB BLOOD ORDERABLES Final Resu lt [facility] [address] [place] [address], * (ABNORMAL) B-type natriuretic peptide (12/16/2024 9:32 PM EDT) [facility] BNP 224(H) <=100 pcg/mL LAB CHEMISTRY METHOD 12/16/2024 10:38 PM EDT [facility] Blood Venous blood specimen / Unknown Venipuncture / Unknown 12/16/2024 9:32 PM EDT 12/16/2024 10:00 PM EDT Kim SIGALA LAB BLOOD ORDERABLES Final Resul t Performing Organization Address [facility] Co de Phone Number [facility] [address] [place] [address], [place] [phone] * Lipase (12/16/2024 9:32 PM EDT) Only the most recent of6 resultswithin the time period is included. [facility] Lipase 68 13 - 75 unit/L LAB CHEMISTRY METHOD 12/16/2024 10:31 PM EDT [facility] Blood Venous blood specimen / Unknown Venipuncture / Unknown 12/16/2024 9:32 PM EDT 12/16/2024 10:00 PM EDT Kim SIGALA LAB BLOOD ORDERABLES Final Resul t Performing Organization Address [facility]/ZIP Co de Phone Number [facility] [address] [place] [address], [place] [phone] * (ABNORMAL) Comprehensive metabolic panel (12/16/2024 9:32 PM EDT) Only the most recent of7 resultswithin the time period is included. [facility] Sodium 137 133 - 145 mmol/L LAB CHEMISTRY METHOD 12/16/2024 10:42 PM EDT [facility] Potassium 4.5 3.5 - 5.5 mmol/L LAB CHEMISTRY METHOD 12/16/2024 10:42 PM EDT [facility] Comment:Hemolysis present Chloride 104 96 - 110 mmol/L LAB CHEMISTRY METHOD 12/16/2024 10:42 PM [facility] CO2 26 21 - 32 mmol/L LAB CHEMISTRY METHOD 12/16/2024 10:42 PM [facility] Anion Gap 7 3 - 11 LAB CHEMISTRY METHOD 12/16/2024 10:42 PM [facility] Glucose 432(HH) 70 - 100 mg/dL LAB CHEMISTRY METHOD 12/16/2024 10:42 PM [facility] BUN 23 5 - 25 mg/dL LAB CHEMISTRY METHOD 12/16/2024 10:42 PM [facility] Creatinine 1.40(H) 0.70 - 1.30 mg/dL LAB CHEMISTRY METHOD 12/16/2024 10:42 PM [facility] eGFR 52(L) >=60 mL/min/1. 73m2 LAB CHEMISTRY METHOD 12/16/2024 10:42 PM [facility] Comment:Calculation based on the Chronic Kidney Disease Epidemiology Collaboration (CKD-EPI) equation refit without adjustment for race. BUN/Creatinine Ratio 16.4 LAB CHEMISTRY METHOD 12/16/2024 10:42 PM [facility] Calcium 9.2 8.5 - 10.5 mg/dL LAB CHEMISTRY METHOD 12/16/2024 10:42 PM [facility] AST (SGOT) 16 10 - 42 unit/L LAB CHEMISTRY METHOD 12/16/2024 10:42 PM [facility] ALT (SGPT) 43 10 - 60 unit/L LAB CHEMISTRY METHOD 12/16/2024 10:42 PM [facility] Alkaline Phosphatase 114 42 - 121 unit/L LAB CHEMISTRY METHOD 12/16/2024 10:42 PM [facility] Total Protein 6.9 6.0 - 8.0 g/dL LAB CHEMISTRY METHOD 12/16/2024 10:42 PM [facility] Albumin 3.0(L) 3.2 - 5.0 g/dL LAB CHEMISTRY METHOD 12/16/2024 10:42 PM EDT [facility] Total Bilirubin 0.5 0.0 - 1.4 mg/dL LAB CHEMISTRY METHOD 12/16/2024 10:42 PM EDT [facility] Blood Venous blood specimen / Unknown Venipuncture / Unknown 12/16/2024 9:32 PM EDT 12/16/2024 10:00 PM EDT us Kim SIGALA LAB BLOOD ORDERABLES Final Resul t [facility] [address] [place] [address], [place] [phone] * (ABNORMAL) Hepatic function panel (12/11/2024 7:00 AM EDT) Total Protein 6.2 6.0 - 8.0 g/dL LAB CHEMISTRY METHOD 12/11/2024 8:40 AM [facility] Albumin 2.7(L) 3.2 - 5.0 g/dL LAB CHEMISTRY METHOD 12/11/2024 8:40 AM EDT [facility] Total Bilirubin 1.0 0.0 - 1.4 mg/dL LAB CHEMISTRY METHOD 12/11/2024 8:40 AM T [facility] Bilirubin, Direct 0.4(H) 0.0 - 0.3 mg/dL LAB CHEMISTRY METHOD 12/11/2024 8:40 AM EDT [facility] Bilirubin, Indirect 0.6 0.0 - 1.1 mg/dL LAB CHEMISTRY METHOD 12/11/2024 8:40 AM [facility] ALT (SGPT) 208(H) 10 - 60 unit/L LAB CHEMISTRY METHOD 12/11/2024 8:40 AM [facility] AST (SGOT) 105(H) 10 - 42 unit/L LAB CHEMISTRY METHOD 12/11/2024 8:40 AM EDT [facility] Alkaline Phosphatase 146(H) 42 - 121 unit/L LAB CHEMISTRY METHOD 12/11/2024 8:40 AM EDT [facility] Blood Venous blood specimen / Unknown Venipuncture / Unknown 12/11/2024 7:00 AM EDT 12/11/2024 7:16 AM EDT Randee SIGALA LAB BLOOD ORDERABLES Final Res ult [facility] [address] [place] [address], [place] [phone] * XR Chest 1 View (12/10/2024 3:03 PM EDT) Only the most recent of2 resultswithin the time period is included. Anatomical Region Laterality Modality Body Radiographic Mary Carmen ging 12/10/2024 3:13 PM EDT Impressions 12/10/2024 3:15 PM EDT Hypoinflated lungs with mild bibasilar atelectatic changes. -------- FINAL REPORT -------- Dictated By: Rei Lee Dictated Date: 12/10/2024 15:13 ET Assigned Physician: Rei Lee Reviewed and Electronically Signed By: Rei Lee Signed Date: 12/10/2024 15:15 ET Workstation ID: [id number] Transcribed By: Self Edit Transcribed Date: 12/10/2024 15:13 ET Narrative 12/10/2024 3:15 PM EDT INDICATION: Chest pain FINDINGS: Single portable AP view of the chest obtained. November 08, 2024. Lung borden are hypoinflated with mild basilar basilar atelectatic changes suspected. No infiltrates or effusions. No pneumothorax. Heart similar in size and shape. Midline sternotomy noted with valvular replacement. Bony structures are grossly intact and normal for the patient's age. Surgical drains noted in the right upper quadrant underneath the diaphragm. Procedure Note Rei Lee MD - 12/10/2024 INDICATION: Chest pain FINDINGS: Single portable AP view of the chest obtained. November 08, 2024. Lung borden are hypoinflated with mild basilar basilar atelectatic changessuspected. No infiltrates or effusions. No pneumothorax. Heart similar in size and shape. Midline sternotomy noted with valvularreplacement. Bony structures are grossly intact and normal for the patient's age. Surgical drains noted in the right upper quadrant underneath thediaphragm. IMPRESSION: Hypoinflated lungs with mild bibasilar atelectatic changes. -------- FINAL REPORT -------- Dictated By: Rei Lee Dictated Date: 12/10/2024 15:13 ET Assigned Physician: Rei Lee Reviewed and Electronically Signed By: Rei Lee Signed Date: 12/10/2024 15:15 ET Workstation ID: [id number] Transcribed By: Self Edit Transcribed Date: 12/10/2024 15:13 ET [facility] IMG XR PROCEDURES Final Resu lt * XR Cholangiogram Intraoperative (12/10/2024 10:43 AM EDT) Anatomical Region Laterality Modality Body Radio Fluoroscop y 12/10/2024 3:42 PM EDT Impressions 12/10/2024 3:45 PM EDT Nonopacified biliary tree with contrast extravasation and possible partial gallbladder opacification. -------- FINAL REPORT -------- Dictated By: Rei Lee Dictated Date: 12/10/2024 15:42 ET Assigned Physician: Rei Lee Reviewed and Electronically Signed By: Rei Lee Signed Date: 12/10/2024 15:45 ET Workstation ID: [id number] Transcribed By: Self Edit Transcribed Date: 12/10/2024 15:42 ET Narrative 12/10/2024 3:45 PM EDT Indication: Cholecystectomy FINDINGS: Intraoperative cholangiogram attempted. No immediate reading requested. Contrast injection demonstrates extravasation along the liver edge and in the right upper quadrant with possible opacification of the more medial aspect of the gallbladder. No definite visualization of the cystic duct. Total patient dose (air kerma): 4.87 mGy Procedure Note Rei Lee MD - 12/10/2024 Indication: Cholecystectomy FINDINGS: Intraoperative cholangiogram attempted. No immediate readingrequested. Contrast injection demonstrates extravasation along the liver edge and inthe right upper quadrant with possible opacification of the more medialaspect of the gallbladder. No definite visualization of the cystic duct. Total patient dose (air kerma): 4.87 mGy IMPRESSION: Nonopacified biliary tree with contrast extravasation and possible partialgallbladder opacification. -------- FINAL REPORT -------- Dictated By: Rei Lee Dictated Date: 12/10/2024 15:42 ET Assigned Physician: Rei Lee Reviewed and Electronically Signed By: Rei Lee Signed Date: 12/10/2024 15:45 ET Workstation ID: [id number] Transcribed By: Self Edit Transcribed Date: 12/10/2024 15:42 ET Randee SIGALA IMG FLUOROSCOPY PROCEDURES Fin al Result * Tissue exam (12/10/2024 10:10 AM EDT) Final Diagnosis Gallbladder, cholecystectomy: Acute and chronic cholecystitis with cholelithiasis. 12/11/2024 4:04 PM EDT [facility] Gross Description A. Gallbladder, : Labeled gallbladder . Received in red-brown, blood/bile-staine d formalin admixed with blood clot, formalin is a previously disrupted, 6.5 cm in length nieves-red, focally hemorrhagic gallbladder, including a segment of clipped cystic duct. The duct has a diameter of less than 0.1 cm at the margin. A periductal lymph node is absent. The serosa is smooth and the adventitia is cauterized. The gallbladder has a small amount of attached adipose tissue the maximal gallbladder circumference is 6.0 cm. The lumen contains nieves-red to brown viscid bile and multiple intact to disrupted yellow calculi measuring up to 1.3 cm in greatest diameter. The mucosa is velvety, red and hemorrhagic. The wall thickness averages less than 0.1 cm. The attached underlying tissue is focally edematous. Due to the disruption, the margins are not inked. Bilingual Manager sections are submitted in one cassette including gallbladder (fundus, body and neck), duct margin (inked red), and cross-section adjacent to duct margin (inked black), five pieces. TS 12/11/2024 4:04 PM EDT [facility] Disclaimer Unless otherwise specified, all tissue is 10% NB formalin fixed and paraffin embedded. 12/11/2024 4:04 PM EDT [facility] Tissue Gallbladder structure / Unknown 12/10/2024 10:10 AM EDT 12/10/2024 11:19 AM EDT us Philip Valadez MD LAB PATHOLOGY ORDERABLES Final Result [facility] [address] [place] [address], [place] [phone] * TH AN ENDOTRACHEAL(NO CHARGE) (12/10/2024 8:53 AM EDT) Narrative Minal Potter CRNA - 12/10/2024 8:53 AM EDT Minal Potter CRNA 12/10/2024 8:53 AM General Information and Staff Patient location during procedure: OR Resident/DIET CONSULTANT: Minal Potter CRNA Performed: resident/DIET CONSULTANT/CAA Performed by: Minal Potter CRNA Authorized by: Diann Story MD Intubation Additional Comments Smooth induction, airway placement verified, airway secured. Airway not difficult Urgency: elective Final Airway Details Successful airway: ETT Cuffed: yes Successful intubation technique: direct laryngoscopy Facilitating devices/methods: intubating stylet and cricoid pressure Endotracheal tube insertion site: oral Blade: Fiorella Blade size: #3 ETT size (mm): 7.5 Cormack-Lehane Classification: grade I - full view of glottis Placement verified by: chest auscultation and capnometry Measured from: gums ETT to gums (cm): 22 Number of attempts at approach: 1 Ventilation between attempts: none Number of other approaches attempted: 0Final airway type: endotracheal airway Indications and Patient Condition Indications for airway management: anesthesia and airway protection Spontaneous Ventilation: absent (Post GA induction) Sedation level: Yes Preoxygenated: yes Soft Tissue Damage: No Dentition Unchanged: Yes (Edentulous) Patient position: neutral MILS maintained throughout Mask difficulty assessment: 2 - vent by mask + OA or adjuvant +/- NMBA (Easy mask w/ OPA) Diann Story MD ANESTHESIA ORDERABLES [facility] al Result * (ABNORMAL) Complete blood count (12/10/2024 6:49 AM EDT) [facility] WBC 7.1 4.8 - 10.8 K/mcL LAB HEMETOLOGY METHOD 12/10/2024 7:16 AM [facility] RBC 4.60 4.50 - 5.50 M/mcL LAB HEMETOLOGY METHOD 12/10/2024 7:16 AM [facility] Hemoglobin 13.4(L) 13.5 - 17.5 g/dL LAB HEMETOLOGY METHOD 12/10/2024 7:16 AM [facility] Hematocrit 40.0(L) 42.0 - 54.0 % LAB HEMETOLOGY METHOD 12/10/2024 7:16 AM [facility] MCV 87.0 79.0 - 98.0 FL LAB HEMETOLOGY METHOD 12/10/2024 7:16 AM [facility] MCH 29.1 27.0 - 32.0 pcg LAB HEMETOLOGY METHOD 12/10/2024 7:16 AM [facility] MCHC 33.5 32.0 - 37.0 g/dL LAB HEMETOLOGY METHOD 12/10/2024 7:16 AM [facility] RDW 13.1 11.0 - 15.0 % LAB HEMETOLOGY METHOD 12/10/2024 7:16 AM [facility] Platelets 157 130 - 400 K/mcL LAB HEMETOLOGY METHOD 12/10/2024 7:16 AM EDT [facility] MPV 10.2 7.0 - 11.0 FL LAB HEMETOLOGY METHOD 12/10/2024 7:16 AM EDT [facility] NRBC 0.0 <1.0 % LAB HEMETOLOGY METHOD 12/10/2024 7:16 AM EDT [facility] NRBC Absolute 0.00 <0.10 K/mcL LAB HEMETOLOGY METHOD 12/10/2024 7:16 AM EDT [facility] Blood Venous blood specimen / Unknown Venipuncture / Unknown 12/10/2024 6:49 AM EDT 12/10/2024 7:00 AM EDT us Ana SIGALA LAB BLOOD ORDERABLES Final Resul t [facility] [address] [place] [address], [place] [phone] * CT Abdomen Pelvis w Contrast (12/09/2024 11:11 AM EDT) Only the most recent of3 resultswithin the time period is included. Anatomical Region Laterality Modality Body Computed Tomogra phy 12/09/2024 11:2 3 AM EDT Impressions 12/09/2024 11:35 AM EDT Impression: 1. Abnormal appearance of the gallbladder concerning for acute cholecystitis. 2. Stable common bile duct dilatation. 3. Heterogeneously attenuating hepatic parenchyma, possibly reactive changes in the setting of the gallbladder process. No discrete mass is seen. Enrique SIGALA ([id number]) -------- FINAL REPORT -------- Dictated By: Rekha Julian Dictated Date: 12/09/2024 11:23 ET Assigned Physician: Rekha Julian Reviewed and Electronically Signed By: Rekha Julian Signed Date: 12/09/2024 11:35 ET Workstation ID: [id number] Transcribed By: Self Edit Transcribed Date: 12/09/2024 11:23 ET Narrative 12/09/2024 11:35 AM EDT History: Epigastric/right upper quadrant abdominal pain. Comparison: 11/16/24, 07/12/22, right upper quadrant ultrasound 11/16/24 Technique: Helical volumetric imaging of the abdomen and pelvis was performed during the uneventful intravenous administration of 90 cc Isovue-370. DLP: 991.69 mGy/cm [email or web address] VCT Iterative reconstruction technique Findings: The liver remains normal in size and configuration. The liver is heterogeneous, with a focal area of diminished attenuation within the dome of the right hepatic lobe (images 33 - 42 series 3), and a 3 cm rounded, hyperattenuating area adjacent to the gallbladder fossa (image 62). This is a change from the previous studies. The gallbladder is moderately distended, to approximately 10 cm in long axis diameter, and new wall thickening, trace pericholecystic fluid, and subtle pericholecystic fat stranding are noted. The findings raise concern for acute cholecystitis. The common duct is dilated to approximately 10 mm, similar to the previous studies dating back to 2022. The spleen and adrenal glands are unremarkable. The pancreas is normal in size and configuration. No mass is identified. The distal pancreatic duct is mildly distended, measuring up to approximately 5 mm in diameter, unchanged from the previous studies. The peripancreatic fat is preserved. The kidneys are normal in position and size, with symmetric, intact nephrograms and no evidence of hydronephrosis. No suspicious developing solid renal mass is seen. The left renal vein is circumaortic, in anatomic variant. The abdominal aorta is atherosclerotic. No aortic aneurysm is seen. No ascites is identified. There is no developing lymphadenopathy. The prostate is enlarged. The urinary bladder is unremarkable. No evidence of bowel obstruction is seen. No abnormal perienteric or pericolonic fat stranding is identified. A small fat-containing periumbilical hernia is noted, unchanged. Compression fractures of the superior endplates of L1 and L3 are without significant change. Minimal retropulsion of the superior endplate of L1 is again noted. Sternal sutures are partially imaged. Procedure Note Rekha Julian MD - 12/09/2024 History: Epigastric/right upper quadrant abdominal pain. Comparison: 11/16/24, 07/12/22, right upper quadrant ultrasound 11/16/24 Technique: Helical volumetric imaging of the abdomen and pelvis wasperformed during the uneventful intravenous administration of 90 ccIsovue-370. DLP: 991.69 mGy/cm [employer] VCT Iterative reconstruction technique Findings: The liver remains normal in size and configuration. The liver isheterogeneous, with a focal area of diminished attenuation within the domeof the right hepatic lobe (images 33 - 42 series 3), and a 3 cm rounded,hyperattenuating area adjacent to the gallbladder fossa (image 62). Thisis a change from the previous studies. The gallbladder is moderately distended, to approximately 10 cm in longaxis diameter, and new wall thickening, trace pericholecystic fluid, andsubtle pericholecystic fat stranding are noted. The findings raise concernfor acute cholecystitis. The common duct is dilated to approximately 10mm, similar to the previous studies dating back to 2022. The spleen and adrenal glands are unremarkable. The pancreas is normal insize and configuration. No mass is identified. The distal pancreatic ductis mildly distended, measuring up to approximately 5 mm in diameter,unchanged from the previous studies. The peripancreatic fat ispreserved. The kidneys are normal in position and size, with symmetric, intactnephrograms and no evidence of hydronephrosis. No suspicious developingsolid renal mass is seen. The left renal vein is circumaortic, in anatomicvariant. The abdominal aorta is atherosclerotic. No aortic aneurysm is seen. Noascites is identified. There is no developing lymphadenopathy. The prostate is enlarged. The urinary bladder is unremarkable. No evidence of bowel obstruction is seen. No abnormal perienteric orpericolonic fat stranding is identified. A small fat-containingperiumbilical hernia is noted, unchanged. Compression fractures of the superior endplates of L1 and L3 are withoutsignificant change. Minimal retropulsion of the superior endplate of L1 isagain noted. Sternal sutures are partially imaged. IMPRESSION: Impression: 1. Abnormal appearance of the gallbladder concerning for acutecholecystitis. 2. Stable common bile duct dilatation. 3. Heterogeneously attenuating hepatic parenchyma, possibly reactivechanges in the setting of the gallbladder process. No discrete mass isseen. [place] ([id number]) -------- FINAL REPORT -------- Dictated By: Rekha Julian Dictated Date: 12/09/2024 11:23 ET Assigned Physician: Rekha Julian Reviewed and Electronically Signed By: Rekha Julian Signed Date: 12/09/2024 11:35 ET Workstation ID: [id number] Transcribed By: Self Edit Transcribed Date: 12/09/2024 11:23 ET us Juan R Osorio DO IMG CT PROCEDURES Final Res ult * US Abdomen Limited (11/16/2024 10:49 PM EDT) Anatomical Region Laterality Modality Body Ultrasound 11/16/2024 11:4 5 PM EDT Impressions 11/16/2024 11:45 PM EDT 1. Cholelithiasis without sonographic evidence of acute cholecystitis. 2. Mildly dilated common bile duct measuring up to 8-9 mm in caliber. Correlation with liver function tests is advised. Follow-up nonurgent MRCP correlation can be considered to exclude choledocholithiasis. 3. Fatty liver. This document has been electronically signed by: Bayron Rocha M.D. on 11/16/2024 23:45:32 Narrative 11/16/2024 11:45 PM EDT INDICATION: Eval for gallbladder disease ULTRASOUND ABDOMEN LIMITED COMPARISON: CT abdomen/pelvis 11/16/2024. FINDINGS: Pancreas is obscured by overlying bowel gas. Liver is fatty but otherwise grossly unremarkable. Gallbladder contains multiple shadowing stones. No gallbladder wall thickening or pericholecystic fluid. No sonographic Barahona's sign. Common bile duct measures up to 8-9 mm in caliber by my measurements. Right kidney is unremarkable without stone or hydronephrosis. Procedure Note Bayron Rocha MD - 11/16/2024 INDICATION: Eval for gallbladder disease ULTRASOUND ABDOMEN LIMITED COMPARISON: CT abdomen/pelvis 11/16/2024. FINDINGS: Pancreas is obscured by overlying bowel gas. Liver is fattybut otherwise grossly unremarkable. Gallbladder contains multiple shadowing stones. No gallbladder wall thickening or pericholecystic fluid. No sonographic Barahona's sign. Common bile duct measures up to 8-9 mm in caliber by my measurements. Right kidney is unremarkable without stoneor hydronephrosis. IMPRESSION: 1. Cholelithiasis without sonographic evidence of acute cholecystitis. 2. Mildly dilated common bile duct measuring up to 8-9 mm in caliber. Correlation with liver function tests is advised. Follow-up nonurgentMRCP correlation can be considered to exclude choledocholithiasis. 3. Fatty liver. This document has been electronically signed by: Bayron Rocha M.D. on 11/16/2024 23:45:32 us Eva SIGALA IMG US PROCEDURES Final Result * (ABNORMAL) Urinalysis with reflex microscopic (11/16/2024 9:52 PM EDT) Specific [place] Urine >1.045(H) 1.003 - 1.030 LAB URINALYSIS - AUTOMATED METHOD 11/16/2024 10:13 PM [facility] pH, Urine 6.5 5.0 - 8.0 pH LAB URINALYSIS - AUTOMATED METHOD 11/16/2024 10:13 PM [facility] Leukocytes, Urine Negative Negative LAB URINALYSIS - AUTOMATED METHOD 11/16/2024 10:13 PM [facility] Nitrite, Urine Negative Negative LAB URINALYSIS - AUTOMATED METHOD 11/16/2024 10:13 PM [facility] Protein, Urine Trace <=Trace mg/dL LAB URINALYSIS - AUTOMATED METHOD 11/16/2024 10:13 PM [facility] Glucose, Urine >=1000(A) Negative mg/dL LAB URINALYSIS - AUTOMATED METHOD 11/16/2024 10:13 PM [facility] Ketones, Urine Negative Negative mg/dL LAB URINALYSIS - AUTOMATED METHOD 11/16/2024 10:13 PM [facility] Urobilinogen , Urine 1.0 0.2 - 1.0 mg/dL LAB URINALYSIS - AUTOMATED METHOD 11/16/2024 10:13 PM EDT [facility] Bilirubin, Urine Negative Negative LAB URINALYSIS - AUTOMATED METHOD 11/16/2024 10:13 PM EDT [facility] Blood, Urine Negative Negative LAB URINALYSIS - AUTOMATED METHOD 11/16/2024 10:13 PM EDT [facility] Urine Urine specimen obtained by clean catch procedure / Unknown Non-blood Collection / Unknown 11/16/2024 9:52 PM EDT 11/16/2024 10:07 PM EDT us Eva SIGALA LAB URINE ORDERABLES Final Resu lt Performing Organization Address [facility]/ZIP Co de Phone Number [facility] [address] [place] [address], [place] [phone] * Lactate, with reflex (11/16/2024 8:07 PM EDT) LACTIC ACID 2.0 0.4 - 2.0 mmol/L LAB CHEMISTRY METHOD 11/16/2024 8:59 PM EDT [facility] Blood Venous blood specimen / Unknown Venipuncture / Unknown 11/16/2024 8:07 PM EDT 11/16/2024 8:25 PM EDT us Eva SIGALA LAB BLOOD ORDERABLES Final Resu lt Performing Organization Address City/[facility]/ZIP Co de Phone Number [facility] [address] [place] [address], [place] [phone] * CT Angio Chest wo and/or w Contrast (11/08/2024 2:19 PM EDT) Anatomical Region Laterality Modality Body Computed Tomogra phy 11/08/2024 2:55 PM EDT Impressions 11/08/2024 2:59 PM EDT No pulmonary embolism. Trace aspirated debris in the trachea and mainstem bronchi. Mild bronchial wall thickening could represent mild bronchitis. -------- FINAL REPORT -------- Dictated By: Hernan Van Dictated Date: 11/08/2024 14:55 ET Assigned Physician: Hernan Van Reviewed and Electronically Signed By: Hernan Van Signed Date: 11/08/2024 14:59 ET Workstation ID: [id number] Transcribed By: Self Edit Transcribed Date: 11/08/2024 14:55 ET Narrative 11/08/2024 2:59 PM EDT PROCEDURE: CT pulmonary angiogram. HISTORY: Chest pain, nonspecific. TECHNIQUE: CT of the chest with intravenous contrast administration with pulmonary angiogram protocol. Coronal and sagittal reformats and MIP reconstructions were created. Dose length product: 1179 mGy-cm. Contrast dose: 90 mL ISOVUE-370. COMPARISON: FINDINGS: LUNGS/PLEURA: Trace aspirated debris in the trachea and mainstem bronchi. Mild bronchial wall thickening. Punctate calcified left lower lobe granuloma. Mild dependent atelectasis. Lungs otherwise clear. Lungs are clear. No pleural effusion or pneumothorax. MEDIASTINUM/BRODY: No mass or lymphadenopathy. VASCULATURE: Normal caliber pulmonary arteries. No pulmonary embolism. Mild atherosclerotic calcifications of the great vessels. CARDIAC: Aortic valve prosthesis and moderate coronary artery calcification. Upper normal heart size. CHEST WALL: No axillary or supraclavicular lymphadenopathy. LIMITED ABDOMEN: Unremarkable. BONES: Degenerative changes of the spine. Stable L1 compression fracture. Sternotomy wires. Remote right lateral 11th rib fracture. Several remote healed left rib fractures. Procedure Note Hernan Van MD - 11/08/2024 PROCEDURE: CT pulmonary angiogram. HISTORY: Chest pain, nonspecific. TECHNIQUE: CT of the chest with intravenous contrast administration withpulmonary angiogram protocol. Coronal and sagittal reformats and MIPreconstructions were created. Dose length product: 1179 mGy-cm. Contrast dose: 90 mL ISOVUE-370. COMPARISON: FINDINGS: LUNGS/PLEURA: Trace aspirated debris in the trachea and mainstem bronchi.Mild bronchial wall thickening. Punctate calcified left lower lobegranuloma. Mild dependent atelectasis. Lungs otherwise clear. Lungs areclear. No pleural effusion or pneumothorax. MEDIASTINUM/BRODY: No mass or lymphadenopathy. VASCULATURE: Normal caliber pulmonary arteries. No pulmonary embolism.Mild atherosclerotic calcifications of the great vessels. CARDIAC: Aortic valve prosthesis and moderate coronary arterycalcification. Upper normal heart size. CHEST WALL: No axillary or supraclavicular lymphadenopathy. LIMITED ABDOMEN: Unremarkable. BONES: Degenerative changes of the spine. Stable L1 compression fracture.Sternotomy wires. Remote right lateral 11th rib fracture. Severalremote healed left rib fractures. IMPRESSION: No pulmonary embolism. Trace aspirated debris in the trachea and mainstem bronchi. Mildbronchial wall thickening could represent mild bronchitis. -------- FINAL REPORT -------- Dictated By: Hernan Van Dictated Date: 11/08/2024 14:55 ET Assigned Physician: Hernan Van Reviewed and Electronically Signed By: Hernan Van Signed Date: 11/08/2024 14:59 ET Workstation ID: [id number] Transcribed By: Self Edit Transcribed Date: 11/08/2024 14:55 ET Philip Clay MD IM CT PROCEDURES Final Resul t * (ABNORMAL) Urinalysis with reflex microscopic and culture (11/08/2024 8:33 AM EDT) Only the most recent of2 resultswithin the time period is included. Specific [place] Urine 1.025 1.003 - 1.030 LAB URINALYSIS - AUTOMATED METHOD 11/08/2024 8:50 AM [facility] pH, Urine 8.0 5.0 - 8.0 pH LAB URINALYSIS - AUTOMATED METHOD 11/08/2024 8:50 AM [facility] Leukocytes, Urine Negative Negative LAB URINALYSIS - AUTOMATED METHOD 11/08/2024 8:50 AM [facility] Nitrite, Urine Negative Negative LAB URINALYSIS - AUTOMATED METHOD 11/08/2024 8:50 AM [facility] Protein, Urine Trace <=Trace mg/dL LAB URINALYSIS - AUTOMATED METHOD 11/08/2024 8:50 AM [facility] Glucose, Urine >=1000(A) Negative mg/dL LAB URINALYSIS - AUTOMATED METHOD 11/08/2024 8:50 AM EDT [facility] Ketones, Urine Negative Negative mg/dL LAB URINALYSIS - AUTOMATED METHOD 11/08/2024 8:50 AM EDT [facility] Urobilinogen , Urine 1.0 0.2 - 1.0 mg/dL LAB URINALYSIS - AUTOMATED METHOD 11/08/2024 8:50 AM EDT [facility] Bilirubin, Urine Negative Negative LAB URINALYSIS - AUTOMATED METHOD 11/08/2024 8:50 AM EDT [facility] Blood, Urine Negative Negative LAB URINALYSIS - AUTOMATED METHOD 11/08/2024 8:50 AM EDT [facility] Urine Urine specimen obtained by clean catch procedure / Unknown Non-blood Collection / Unknown 11/08/2024 8:33 AM EDT 11/08/2024 8:41 AM EDT Philip Clay MD LAB URINE ORDERABLES Final Re sult Performing Organization Address City/[facility]/ZIP Co de Phone Number [facility] [address] [place] [address], [place] [phone] * Meza urine culture tube (11/08/2024 8:33 AM EDT) Only the most recent of2 resultswithin the time period is included. Extra Tube Hold for add-ons. 11/08/2024 10:01 AM EDT [facility] Comment:Auto resulted. Urine Urine specimen obtained by clean catch procedure / Unknown Non-blood Collection / Unknown 11/08/2024 8:33 AM EDT 11/08/2024 8:41 AM EDT us Philip Clay MD LAB URINE ORDERABLES Final Re sult Performing Organization Address City/[facility]/ZIP Co de Phone Number [facility] [address] [place] [address], * [id number], RSV, Influenza A and B qualitative RT-PCR (11/08/2024 8:19 AM EDT) Only the most recent of2 resultswithin the time period is included. Influenza A PCR Not Detected Not Detected LAB MICROBIOLOGY METHOD 11/08/2024 9:23 AM EDT [facility] Influenza B PCR Not Detected Not Detected LAB MICROBIOLOGY METHOD 11/08/2024 9:23 AM EDT [facility] RSV PCR Not Detected Not Detected LAB MICROBIOLOGY METHOD 11/08/2024 9:23 AM EDT [facility] SARS COV-2 Not Detected Not Detected LAB MICROBIOLOGY METHOD 11/08/2024 9:23 AM EDT [facility] Swab Both anterior nares / Unknown Non-blood Collection / Unknown 11/08/2024 8:19 AM EDT 11/08/2024 8:41 AM EDT [facility] - 11/08/2024 9:23 AM EDT Disclaimer: Testing was performed using the [employer] GeneXpert Xpress SARS-CoV-2 _Flu_RSV PLUS PCR assay. The manner in which this information is used to guide patient care is the responsibility of the healthcare provider. Results should be correlated with the clinical history, epidemiological data, and other data available to the clinician evaluating the patient. Negative results do not preclude infection. This test has been authorized by the FDA under an Emergency Use Authorization (EUA). This test is only authorized for the duration of time the declaration that circumstances exist justifying the authorization of the emergency use of in vitro diagnostic tests for detection of SARS-CoV-2 virus and/or diagnosis of COVID-19 infection under section 564 (b) (1) of the Act, 21 U.S.C 360bbb-3 (b) (1), unless the authorization is terminated or revoked sooner. Reference Range: Not Detected Fact sheet for Healthcare providers can be found at https://www.fda.gov/media/004582/download. Fact sheet for Healthcare patients can be found at https://www.fda.gov/media/705849/download. Philip Clay MD LAB MICROBIOLOGY - GENERAL OR DERABLES Final Result Performing Organization Address [facility]/ZIP Co de Phone Number [facility] [address] [place] [address], [place] [phone] * Ammonia (10/31/2024 8:24 PM EDT) Ammonia 22 11 - 35 mcmol/L LAB CHEMISTRY METHOD 10/31/2024 9:20 PM EDT [facility] Blood Venous blood specimen / Unknown Venipuncture / Unknown 10/31/2024 8:24 PM EDT 10/31/2024 8:55 PM EDT Mildred Mcgee Silaselisabeth Bolaños LAB BLOOD ORDERABLES Nataliya l Result Performing Organization Address [facility]/ZIP Co de Phone Number [facility] [address] [place] [address], [place] [phone] * Thyroid stimulating hormone with reflex to free t4 and free t3 (TSH Reflex) (10/31/2024 6:04 PM EDT) Pathologist [facility] TSH 2.53 0.40 - 4.00 mcIU/mL LAB CHEMISTRY METHOD 10/31/2024 8:13 PM EDT [facility] Blood Venous blood specimen / Unknown Venipuncture / Unknown 10/31/2024 6:04 PM EDT 10/31/2024 6:14 PM EDT Mildred Bolaños LAB BLOOD ORDERABLES Nataliya l Result Performing Organization Address City/[facility]/ZIP Co de Phone Number [facility] [address] [place] [address], [place] [phone] from Last 3 Months Insurance MEDICARE Member Subscriber Plan / Payer (Ef fective 2021-Present) Name:Pb Vides Relation to Subscriber:Self Name:Pb Blandon Payer ID:[id number] Group ID:[id number] Type:Not on file Address: [facility] [address] [id number] Advance Directives Documents on File Type Date Recorded Patient Bilingual Manager Expl anation Health Care Decision (hx) 07/14/2022 AD MILLER DIRECTIVE Health Care Decision (hx) 07/14/2022 AD MILLER DIRECTIVE Health Care Decision (hx) 07/14/2022 AD MILLER DIRECTIVE Health Care Decision (hx) 07/14/2022 AD MILLER DIRECTIVE Health Care Decision (hx) 07/14/2022 AD MILLER DIRECTIVE Health Care Decision (hx) 07/14/2022 AD MILLER DIRECTIVE Health Care Decision (hx) 07/14/2022 AD MILLER DIRECTIVE Health Care Decision (hx) 07/14/2022 AD MILLER DIRECTIVE Health Care Decision (hx) 07/14/2022 AD MILLER DIRECTIVE Health Care Decision (hx) 07/14/2022 AD MILLER DIRECTIVE * Full Code - Default (Latest Code Status on File) Date Activated Date Inactivated Comments 12/10/2024 12:06 PM 12/11/2024 4:48 PM This is ord er is used when code status has not been discussed with the patient, or code status is otherwise unknown/unconfirmed To update the patient's code status, place a code status order. Do not modify or discontinue any currently active code status orders. * Full Code - Default Date Activated Date Inactivated Comments 12/09/2024 2:14 PM 12/10/2024 12:06 PM This is ord er is used when code status has not been discussed with the patient, or code status is otherwise unknown/unconfirmed To update the patient's code status, place a code status order. Do not modify or discontinue any currently active code status orders. Care Teams Humanities Professor Relationship Specialty Start Date End Date Agnes Prieto MD [address] [place] [id number] PCP - General 11/27/12
--- OUTSIDE RECORDS SUMMARY | 2025-01-21 12:22 | XMS_ITS ---
Author Name [facility] ([place], [place]) Organization Unknown Encounters Encounter Type Encounter Reason Primary Diagnosis Location Date Ambulatory [facility] [place] 01/05/2025
--- OUTSIDE RECORDS SUMMARY | 2025-01-21 12:22 | XMS_ITS | Continuity of Care Document ---
Author Name Cory Orozco Address [address] [place] [id number] Organization Unknown Address [address] [place] [address] Medications No known medications Problems No known problems
--- OUTSIDE RECORDS SUMMARY | 2025-01-21 12:22 | XMS_ITS | Clinical Summary ---
Author Organization [facility] Address [address] [facility] [address] [place] [address] Phone Care Team Providers Care Watch Engineer Name Role Phone Agnes Prieto MD Primary Care Provider [phone] Allergies No known active allergies Medications albuterol HFA (PROVENTIL HFA;VENTOLIN HFA) 108 (90 Base) MCG/ACT inhaler INHALE TWO PUFFS FOUR TIMES DAILY 2 Active Jardiance 25 MG tablet Take 25 mg by mouth 1 (one) time each day 2 Active FeroSul 325 (65 Fe) MG tablet TAKE ONE TABLET BY MOUTH EVERY OTHER DAY AT NOON 2 Active Flovent Diskus 250 MCG/BLIST diskus inhaler 2 Active Tresiba FlexTouch 200 UNIT/ML injection 30 Units every night 2 Active Lyumjev KwikPen 100 UNIT/ML solution pen-injector INJECT 16 TO 20 UNITS SUBCUTANEOUSLY THREE TIMES DAILY DIRECTED 2 Active loratadine (CLARITIN) 10 MG tablet Take 10 mg by mouth 1 (one) time each day 1 Active melatonin 3 MG tablet every night 2 Active metFORMIN (GLUCOPHAGE) 1000 MG tablet Take 1,000 mg by mouth in the morning and 1,000 mg in the evening. 2 Active METHADONE HCL PO Take 40 mg by mouth 1 (one) time each day 2 Active omeprazole (PriLOSEC) [address] capsule 2 Active rosuvastatin (CRESTOR) 40 MG tablet Take 40 mg by mouth 1 (one) time each day 2 Active sertraline (ZOLOFT) 25 MG tablet Take 25 mg by mouth 1 (one) time each day 2 Active topiramate (TOPAMAX) 50 MG tablet Take 50 mg by mouth at bed time 2 Active furosemide (LASIX) 20 MG tablet Take 20 mg by mouth every morning 3 Active sertraline (ZOLOFT) 25 MG tablet Take 1 tablet by mouth every morning 3 Active topiramate (TOPAMAX) 50 MG tablet Take 1 tablet by mouth 2 Active methadone (DOLOPHINE) 10 MG tablet Take 4 tablets by mouth in the morning. Active pregabalin (LYRICA) 50 MG capsule Take 50 mg by mouth in the morning and 50 mg in the evening and 50 mg before bedtime. Active Active Problems Problem Noted Date Diagnosed Date Renal scarring 09/05/2021 Alcoholism 09/05/2021 Proteinuria, not otherwise specified 09/05/2021 Acute nontraumatic kidney injury 09/04/2021 Cardiorenal syndrome 09/04/2021 Failure to thrive 09/04/2021 Cigar smoker 08/31/2021 Diabetes mellitus 08/31/2021 Dysphagia 08/31/2021 Dyspnea 08/31/2021 Gastroesophageal reflux disease 08/31/2021 Dyslipidemia 08/31/2021 Hypertension 08/31/2021 Insulin treated type 2 diabetes mellitus 022 Methadone dependence 08/31/2021 Obesity 08/31/2021 Obstructive sleep apnea syndrome 08/31/2021 History of aortic valve repair 08/31/2021 Rheumatoid arthritis 08/31/2021 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 08/31/2021 Resolved Problems Problem Noted Date Diagnosed Date Resolved Date Stage 3a chronic kidney disease 09/05/2021 08/31/2022 Aortic valve stenosis 08/31/20212022 Cardiac murmur 08/31/2021 08/29/2022 Chest pain at rest 08/31/2021 3 H/O: Disorder 08/31/2021 08/29/2022 Family history of transient ischemic attack 08/31/2021 08/29/2022 Family History Medical History Relation Comments Heart disease Brother Cancer Mother Diabetes Mother Diabetes Sister Relation Status Comments Brother Mother Sister Social History Tobacco Use Types Packs/Day Years Used Date Smoking Tobacco: Every Day Cigars Smokeless Tobacco: Never Tobacco Cessation:Ready to Q uit: No; Counseling Given: No Alcohol Use Standard Drinks/Week Comments Yes 0 (1 standard drink = 0.6 oz pur e alcohol) Sex and Gender Information Value Date Recorded Sex Assigned at Not on file Legal Sex Male 3:04 PM EST Gender Identity Male 08/30/2022 12:53 PM EST Sexual Orientation Not on file Last Filed Vital Signs Vital Sign Reading Time Taken Comments Blood Pressure 126/66 08/31/2022 9:57 AM EST Pulse 72 08/31/2022 9:57 AM EST Temperature - - Respiratory Rate - - Oxygen Saturation 97% 08/31/2022 9:57 AM EST Inhaled Oxygen Concentration - - Weight 88.1 kg (194 lb 3.2 oz) 08/31/2022 9:57 A M EST Height 160 cm (5' 3 ) 08/31/2022 9:57 AM EST Body Mass Index 34.4 08/31/2022 9:57 AM EST Plan of Treatment Health Maintenance Due Date Last Done Comments Pneumococcal Vaccine: 50+ Ye ars (1 of 2 - PCV) 1964 Diabetes: Ophthalmology Exam 08/27/2021 Diabetes: Pedal Pulse Checked 08/27/2021 Diabetes: Sensory Foot Exam 08/27/2021 Diabetes: Visual Foot Exam 08/27/2021 Diabetes: Hemoglobin A1C 10/19/2022 07/21/2022 Influenza Vaccine (#1) 2025 Hepatitis B Vaccine Aged Out 08/13/2012 No longe r eligible based on patient's age to complete this topic Insurance Care Teams Watch Engineer Relationship Specialty Start Date End Date Agnes Prieto MD PCP - General Family Medicine 08/31/22
== END 2025-01-21 12:25 | disposition home or self-care (01) ==
LOC: HO.HSM 11:23
PROVIDERS: PCP Student in an Organized Health Care Education/Training Program; Visit Provider Psychiatry & Neurology Neurology
DX: F03.90 Unspecified dementia, unspecified severity, without behavioral disturbance, psychotic disturbance, mood disturbance, and anxiety (principal); G43.109 Migraine with aura, not intractable, without status migrainosus; G47.01 Insomnia due to medical condition
CPT/HCPCS: 99214

== ENCOUNTER → 2025-01-21 11:22 | Outpatient (BNVA) | payer OTHER, SELFPAY | PROVIDERS: PCP Student in an Organized Health Care Education/Training Program; Visit Provider Psychiatry & Neurology Neurology | DX: G43.109 Migraine with aura, not intractable, without status migrainosus (principal); F03.90 Unspecified dementia, unspecified severity, without behavioral disturbance, psychotic disturbance, mood disturbance, and anxiety; G47.01 Insomnia due to medical condition | CPT/HCPCS: 99212 ==